=== PATIENT | female | born 1960 | race Caucasian/White ===

== ENCOUNTER → 2021-11-10 11:41 | Outpatient (BNVA) | payer BC, SELFPAY | PROVIDERS: PCP Nurse Practitioner Family; Visit Provider Nurse Practitioner Family | DX: R10.9 Unspecified abdominal pain (principal) | CPT/HCPCS: 80053; 82150; 83690 ==

== ENCOUNTER 2021-11-11 16:47 | Outpatient (CLI) | payer BC, SELFPAY ==
--- NOTE | 2021-11-11 16:54 | XR_ITS ---
WS: [id number] XR KUB [id number] REASON FOR EXAM: ABD pain FINDINGS: No free air or retroperitoneal air. Unremarkable bowel gas pattern. Probable small intrarenal calculi bilaterally. Increased density overlying the mid and lower pelvis. No other significant pelvic abnormality. No bony abnormality. XR/XR KUB [id number] IMPRESSION: Increased density overlying the pelvis which could simply represent distended u rinary bladder. However if further evaluation is clinically warranted transabdo janine ultrasound of the pelvis would be appropriate.
== END 2021-11-11 16:48 | disposition home or self-care (01) ==
LOC: RAD 16:52
PROVIDERS: PCP Family Medicine; Visit Provider Family Medicine
DX: R10.9 Unspecified abdominal pain (principal)
CPT/HCPCS: 74018

== ENCOUNTER 2021-11-23 13:30 | Outpatient (CLI) | payer BC, SELFPAY ==
[2021-11-23 14:02] VITALS: BP 117/65; PULSE 51; RESP 17; TEMP 36.1; O2SAT 96; BMI 39.3
[2021-11-23 15:36] VITALS: BP 121/67; PULSE 74; RESP 18; TEMP 36.1; O2SAT 95
[2021-11-23 15:54] VITALS: BP 128/75; PULSE 67; RESP 18; TEMP 36.3; O2SAT 96
[2021-11-23 15:58] VITALS: BP 128/75; PULSE 67; RESP 18; TEMP 36.6; O2SAT 97
== END 2021-11-23 13:31 | disposition home or self-care (01) ==
LOC: OPS 13:31
PROVIDERS: PCP Family Medicine; Visit Provider Nurse Practitioner Family
DX: U07.1 COVID-19 (principal)
CPT/HCPCS: 96365

== ENCOUNTER 2021-12-09 13:23 | Outpatient (CLI) | payer BC, SELFPAY ==
--- NOTE | 2021-12-09 14:30 | CT_ITS ---
WS: [id number] CT ABDOMEN PELVIS TECHNIQUE: Noncontrast CT of the abdomen and contrast-enhanced CT of the abdomen and pelvis with pedro nal and sagittal reformatted images. CLINICAL INFORMATION: abnormal US, ABD pain, complex para pelvic cyst COMPARISON: None. DLP: 4119.[address] scans at [facility] use at least one of these dose optimization techniques: automated e xposure control; mA and/or kV adjustment per patient size (includes targeted exams where dose is matc hed to clinical indication); or iterative reconstruction. FINDINGS: Normal bilateral renal parenchymal enhancement. No hydronephrosis. Simple appearing left renal cysts. Largest cyst in the lower pole with a small amount of calcification measuring 2.1 CM. No suspicious left renal lesions. Right kidney is normal in appearance. Normal enhancement. Enlargement of the right hepatic lobe with hepatomegaly. Liver measures approximately 18.6 cm craniocaudal. Normal portal vein and splenic vein. Mild fatty atrophy of the pancreas. Normal spleen. Normal GE junction. Adrenal glands are normal. No rmal caliber abdominal aorta. Aortic calcification. Tiny fat-containing umbilical hernia. Tiny amount of micronodular infiltrate in the left lower lobe likely inflammatory. Lung bases are otherwise well aerated. Diffuse thickening o f the sigmoid colon with surrounding inflammatory stranding and edema compatible with acute diverticu litis. Moderate amount of free fluid in the pelvis and extending along the left adnexa. No drainable abscess or fluid collection. Lobulated uterus with endometrial thickening abnormal in a patient this age measuring approximately 2 .2 cm. Cervix also appears thickened. Recommend further evaluation with pelvic ultrasound. Neoplasm i s not excluded. Colon is otherwise normal in appearance. No evidence of small or large bowel obstruction. Disc space narrowing L5-S1 with vacuum disc phenomenon. CT/CT abdomen pelvis wo/w [id number] IMPRESSION: 1. Diffuse thickening of the sigmoid colon and with surrounding induration and inflammatory stranding compatible with acute diverticulitis. Moderate amount o f free fluid in the pelvis and extending along the left adnexa. 2. No drainable abscess or fluid collection. 3. Lobulated thickening of the uterus extending into the cervix abnormal for p atient this age. Suspected endometrial thickening measures 2.2 cm. Recommend fu rther evaluation with ultrasound. Neoplasm is not excluded. 4. Incidental simple left renal cysts largest measuring 2.2 CM. No suspicious left renal lesions. 5. No hydronephrosis in either kidney. 6. Hepatomegaly with enlargement of the right hepatic lobe measuring 18.6 cm c raniocaudal. Liver is otherwise normal in appearance. 7. Tiny amount of inflammatory infiltrate in the left lower lobe. 8. No other significant findings. Notified Anyi Christianson NP at 12/09/2021 4:29 PM.
[2021-12-09] MEDS: iohexol 300 mg/mL 50 mL Btl IV (15:02)
[2021-12-09] MEDS: iohexol 300 mg/mL 100 mL Btl IV (15:02)
== END 2021-12-09 13:24 | disposition home or self-care (01) ==
LOC: RAD 13:25
PROVIDERS: PCP Family Medicine; Visit Provider Nurse Practitioner Family
DX: R93.5 Abnormal findings on diagnostic imaging of other abdominal regions, including retroperitoneum (principal); R10.9 Unspecified abdominal pain; R11.0 Nausea; R16.0 Hepatomegaly, not elsewhere classified; N28.1 Cyst of kidney, acquired
CPT/HCPCS: 74178

== ENCOUNTER → 2021-12-10 00:01 | Outpatient (BNVA) | payer BC, SELFPAY | PROVIDERS: PCP Family Medicine; Visit Provider Nurse Practitioner Family | DX: N85.00 Endometrial hyperplasia, unspecified (principal); R93.5 Abnormal findings on diagnostic imaging of other abdominal regions, including retroperitoneum; R16.0 Hepatomegaly, not elsewhere classified; K57.92 Diverticulitis of intestine, part unspecified, without perforation or abscess without bleeding; J45.40 Moderate persistent asthma, uncomplicated; R10.9 Unspecified abdominal pain; R18.8 Other ascites | CPT/HCPCS: 80053; 86705; 86706; 86709; 86803; 87340 ==

== ENCOUNTER → 2022-01-03 11:09 | Outpatient (BNVA) | payer BC, SELFPAY | PROVIDERS: PCP Family Medicine; Visit Provider Surgery | DX: Z20.822 Contact with and (suspected) exposure to COVID-19 (principal) | CPT/HCPCS: 87635 ==

== ENCOUNTER 2022-01-07 06:53 | Day surgery (SDC) | payer BC, SELFPAY ==
[2022-01-05 12:24] VITALS: BMI 39.4
--- NOTE | 2022-01-07 07:30 | ANES.PREANE2 ---
Pre-Anesthetic Assessment Height/Weight: Height 1.57 m Weight 97.976 kg Preop Diagnosis: diagnostic Operation Date: 01/07/22 08:00 Proposed Procedures p Colonoscopy 26099 K59.00(Not Applicable) - Alcides Bruner MD Familial anesthetic complications: None Was Beta Harsh taken within 24 hours: N/A Was Clonidine taken within 24 hours: N/A Social No alcohol and No tobacco Exam alert, oriented x 3, clear to auscultation bilaterally and regular rate & rhythm Airway Submandibular: within normal limits Cervical ROM: within normal limits Mallampati: Class II Dentition: full Pulmonary Asthma GI Gastroesophageal Reflux Disease Diverticular dz Metabolic Morbid Obesity Anesthetic Plan ASA status: 2 Anesthesia: MAC Medications/Allergies Home Medications Medication Instructions Recorded Confirmed Last Taken Type albuterol sulfate 90 mcg/actuation 2 puff INHALATION Q6H PRN #8.5 g 12/10/21 01/05/22 Unknown Rx aerosol inhaler (Proventil HFA) fluticasone propionate 50 1 spray INTRANASAL BID #16 g 12/10/21 01/05/22 Unknown Rx mcg/actuation nasal spray,suspension (Flonase Allergy Relief) montelukast 10 mg tablet 10 mg PO DAILY 90 Days #90 tab 12/10/21 01/05/22 Unknown Rx coenzyme Q10 30 mg capsule (CoQ-10) 30 mg PO DAILY 01/05/22 01/05/22 Unknown History cyclosporine 0.05 % eye drops in a 1 drp OPHTHALMIC (EYE) Q12H 01/05/22 01/05/22 Unknown History dropperette (Restasis) guaifenesin 600 mg tablet, 600 mg PO BID 01/05/22 01/05/22 Unknown History extended release 12 hr (Mucinex) hydroxyzine HCl 25 mg tablet 25 mg PO DAILY 01/05/22 01/05/22 Unknown History omeprazole 20 mg tablet,delayed 20 mg PO DAILY 01/05/22 01/05/22 Unknown History release vitamin 1 tab PO DAILY 01/05/22 01/05/22 Unknown History no.76-iron,carbonyl 29 mg iron-folic acid 1 mg tablet (Thrivite Rx) Allergies Allergy/AdvReac Type Severity Reaction Status Date / Time erythromycin base Allergy ADR-Nausea Verified 12/22/21 10:58 morphine Allergy ADR-Nausea Verified 12/22/21 10:58 [facility] Anesthesia Medical History COVID-19 Pseudotumor cerebri Seasonal allergies Surgical History History of cholecystectomy History of fusion of cervical spine Family History Father Liver failure Other Hypertension Social History Smoking and tobacco status: never smoked Data Anesthesia Cardiac Studies: No Data to Display
[2022-01-07 07:41] VITALS: BP 176/101; PULSE 90; RESP 20; TEMP 36.6; O2SAT 100
[2022-01-07] MEDS: sodium chloride 0.9% 1,000 ML 30 ML IV (07:56)
--- NOTE | 2022-01-07 08:12 | W.PM.OPSFHP ---
Same Day Surgery H&P Indication for Procedure/HPI DATE OF PROCEDURE: January 07, 2022 CHIEF COMPLAINT/INDICATIONFOR SURGICAL PROCEDURE: screening PREOP DIAGNOSIS: diagnostic PLANNED PROCEDURE: Operation Date: 01/07/22 08:00 Proposed Procedures p Colonoscopy 12576 K59.00(Not Applicable) - Alcides Bruner MD Medications/Allergies* Home Medications Medication Instructions Recorded Confirmed Type coenzyme Q10 30 mg capsule (CoQ-10) 30 mg PO DAILY 01/05/22 01/05/22 History cyclosporine 0.05 % eye drops in a 1 drp OPHTHALMIC (EYE) Q12H 01/05/22 01/05/22 History dropperette (Restasis) guaifenesin 600 mg tablet, 600 mg PO BID 01/05/22 01/05/22 History extended release 12 hr (Mucinex) hydroxyzine HCl 25 mg tablet 25 mg PO DAILY 01/05/22 01/05/22 History omeprazole 20 mg tablet,delayed 20 mg PO DAILY 01/05/22 01/05/22 History release vitamin 1 tab PO DAILY 01/05/22 01/05/22 History no.76-iron,carbonyl 29 mg iron-folic acid 1 mg tablet (Thrivite Rx) Allergies/Adverse Reactions Allergy/AdvReac Type Severity Reaction Status Date / Time erythromycin base Allergy ADR-Nausea Verified 12/22/21 10:58 morphine Allergy ADR-Nausea Verified 12/22/21 10:58 Current Medications: Generic Name Dose Route Start Last Admin Trade Name Freq PRN Reason Stop Dose Admin Sodium Chloride 1,000 mls @ 30 mls/hr 01/07/22 07:15 01/07/22 07:56 Sodium Chloride 0.9% IV 01/08/22 07:14 30 mls/hr .Q24H BOB Administration Pertinent History/Comorbid Conditions* Medical History (Updated 12/22/21 @ 11:01 by Anyi Christianson NP) COVID-19 Pseudotumor cerebri Seasonal allergies Surgical History (Updated 11/29/21 @ 12:00 by Alcides Burner MD) History of cholecystectomy History of fusion of cervical spine Family History (Updated 04/23/21 @ 13:42 by Simi Martin LPN) Liver failure Father Hypertension Social History Smoking and tobacco status: never smoked Pertinent Exam Findings alert, oriented x 3 and regular rate & rhythm Recommendations Surgery/Procedure today Coding Level of Care Code 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
[2022-01-07 08:51] VITALS: BP 125/79; PULSE 90; RESP 16; TEMP 36.6; O2SAT 95
[2022-01-07 09:12] VITALS: BP 165/86; PULSE 69; RESP 18; O2SAT 98
--- NOTE | 2022-01-07 12:32 | ANE.PACU2 ---
Inpatient post-anesthesia follow up: Airway intact: Yes Vital signs: Temperature 98 F Pulse Rate 69 Respiratory Rate 18 Blood Pressure 165/86 Pulse Oximetry 98 Oxygen Delivery Me thod Room Air Oxygen Flow Rate Fraction of Inspir ed Oxygen Hydration adequate: Yes Nausea and vomiting: No Pain level: 1 Mental status: Baseline
== END 2022-01-07 09:28 | disposition home or self-care (01) ==
PROVIDERS: PCP Family Medicine; Visit Provider Surgery
PROC: 0DJD8ZZ Inspection of Lower Intestinal Tract, Via Natural or Artificial Opening Endoscopic (ICD-10-PCS; CPT 45378; principal; 2022-01-07 08:00)
DX: K59.00 Constipation, unspecified (principal); K57.30 Diverticulosis of large intestine without perforation or abscess without bleeding; Z86.16 Personal history of COVID-19; K21.9 Gastro-esophageal reflux disease without esophagitis; J45.909 Unspecified asthma, uncomplicated; E66.01 Morbid (severe) obesity due to excess calories; Z68.39 Body mass index [BMI] 39.0-39.9, adult
CPT/HCPCS: 45378; J2704; J7030

== ENCOUNTER → 2022-01-10 09:55 | Outpatient (BNVA) | payer BC, SELFPAY | PROVIDERS: PCP Family Medicine; Visit Provider Obstetrics & Gynecology | DX: Z12.4 Encounter for screening for malignant neoplasm of cervix (principal) | CPT/HCPCS: 87624 ==

== ENCOUNTER → 2022-01-12 09:20 | Outpatient (BNVA) | payer BC, SELFPAY | PROVIDERS: PCP Family Medicine; Visit Provider Obstetrics & Gynecology | DX: Z20.822 Contact with and (suspected) exposure to COVID-19 (principal); R93.89 Abnormal findings on diagnostic imaging of other specified body structures | CPT/HCPCS: 87635 ==

== ENCOUNTER 2022-01-18 11:43 | Day surgery (SDC) | payer BC, SELFPAY ==
[2022-01-18] VITALS (9 sets, daily range): BP systolic 141–168; BP diastolic 68–112; PULSE 76–94; RESP 17–18; TEMP 36.3–37.4; O2SAT 94–99
[2022-01-18] MEDS: ketorolac 30 mg/mL INJ IVP (12:35)
[2022-01-18] MEDS: sodium chloride 0.9% 1,000 ML 30 ML IV (12:35)
[2022-01-18] MEDS: scopolamine 1.5 Patch 1 PATCH TRANSDERMA (12:38)
--- NOTE | 2022-01-18 12:41 | ANES.PREANE2 ---
Pre-Anesthetic Assessment Height/Weight: Height 1.57 m Weight 97.976 kg Temp Pulse Resp BP Pulse Ox 99.4 F 94 18 168/112 96 01/18/22 12:03 01/18/22 12:03 01/18/22 12:03 01/18/22 12:03 01/18/22 12:03 Preop Diagnosis: thickened endometrium Operation Date: 01/18/22 13:25 Proposed Procedures p Hysteroscopy w/ Myosure(Not Applicable) - Laura Contreras MD Familial anesthetic complications: PONV Last intake: Intake Last Liquid Date 01/17/22 Last Liquid Time 23:00 Last Solid Date 01/17/22 Last Solid Time 23:00 Social No alcohol and No tobacco Exam alert, oriented x 3, clear to auscultation bilaterally and regular rate & rhythm Airway Submandibular: within normal limits Cervical ROM: Other (Hx of cervical fusion limited in flexion) Mallampati: Class II Dentition: chipped Pulmonary Asthma Hx of COVID 19 CV/HEM Hypertension METS > 4 None reported Hepatic None reported GI Gastroesophageal Reflux Disease Diverticulosis Metabolic None reported Musc/skel None reported Neuropsych Hx of pseudotumor cerebri Anesthetic Plan ASA status: 2 (Obese 61 year old female with hx of GERD, cervical fusion, PONV, and asthma) Anesthesia: Anesthesia Evaluation and General Other: Prefers general We discussed risk and benefits of general anesthesia including PONV, sore throat (sometimes severe), corneal abrasion, positioning and peripheral nerve injuries, life threatening allergic reaction, post operative ICU admission requiring prolonged intubation, stroke, heart attack, , and rare incidences of recall. Patient consents to proceed with general anesthesia. Hx of PONV. Plan multimodal approach with diphehydramine and scopolamine pre op, propofol infusion intra op in addition to steroid and ondansetron Risk of > 500 ml blood loss (7ml/kg in children): No Medications/Allergies Home Medications Medication Instructions Recorded Confirmed Last Taken Type albuterol sulfate 90 mcg/actuation 2 puff INHALATION Q6H PRN #8.5 g 12/10/21 01/18/22 01/18/22 11:00 Rx aerosol inhaler (Proventil HFA) montelukast 10 mg tablet 10 mg PO DAILY 90 Days #90 tab 12/10/21 01/18/22 01/17/22 Rx cyclosporine 0.05 % eye drops in a 1 drp OPHTHALMIC (EYE) Q12H 01/05/22 01/18/22 01/18/22 10:00 History dropperette (Restasis) guaifenesin 600 mg tablet, 600 mg PO BID 01/05/22 01/18/22 01/17/22 History extended release 12 hr (Mucinex) omeprazole 20 mg tablet,delayed 20 mg PO DAILY 01/05/22 01/18/22 01/17/22 History release vitamin 1 tab PO DAILY 01/05/22 01/18/22 01/17/22 History no.76-iron,carbonyl 29 mg iron-folic acid 1 mg tablet (Thrivite Rx) cetirizine 10 mg capsule (Zyrtec) 10 mg PO DAILY 01/10/22 01/18/22 01/17/22 History coconut oil 1,000 mg capsule 2,000 mg PO DAILY 01/10/22 01/17/22 Unknown History coenzyme Q10 100 mg capsule (Co 100 mg PO DAILY 01/10/22 01/18/22 01/17/22 History Q-10) d-mannose 500 mg capsule (AZO 1,000 mg PO DAILY 01/10/22 01/18/22 01/17/22 History D-Mannose) fluticasone propionate 50 1 spray INTRANASAL DAILY PRN g 01/10/22 01/18/22 01/18/22 10:00 History mcg/actuation nasal spray,suspension (Flonase Allergy Relief) milk thistle 175 mg tablet 175 mg PO BID 01/10/22 01/18/22 01/17/22 History misoprostol 200 mcg tablet 600 mcg PO Q6H #12 tab 01/10/22 01/18/22 01/17/22 Rx (Cytotec) tumeric 100 mg-armando 150 mg-olive 100 cap PO DAILY 01/10/22 01/18/22 01/16/22 History 50 mg-oreg 150 mg-caprylate capsule vit 250 cap PO DAILY cap 01/10/22 01/18/22 01/17/22 History C,E,zinc,Si-gqrjv-4-lutein-zeaxanthin 250 mg-2.5 mg-0.5 mg capsule glucosamine sulfate 500 mg tablet 500 mg PO DAILY 01/17/22 01/18/22 01/17/22 History (Glucosamine) hydroxyzine HCl 25 mg tablet 25 mg PO DAILY 01/17/22 01/18/22 01/17/22 History vitamins A,C,N-dzsp-ssrojl 14,320 1 cap PO BID 01/17/22 01/18/22 01/17/22 History unit-226 mg-200 unit capsule (PreserVision AREDS) Allergies Allergy/AdvReac Type Severity Reaction Status Date / Time erythromycin base Allergy ADR-Nausea Verified 01/18/22 11:59 morphine Allergy ADR-Nausea Verified 01/18/22 11:59 diazepam [From Valium] AdvReac skin crawl Verified 01/18/22 11:59 Current Medications Generic Name Dose Route Start Last Admin Trade Name Freq PRN Reason Stop Dose Admin Sodium Chloride 1,000 mls @ 30 mls/hr 01/18/22 12:00 01/18/22 12:35 Sodium Chloride 0.9% IV 01/19/22 11:59 30 mls/hr .Q24H BOB Administration PFSH Anesthesia Medical History Asthma COVID-19 Diverticulosis Eczema Hypertension Pseudotumor cerebri Seasonal allergies Surgical History History of cholecystectomy History of fusion of cervical spine Status post colonoscopy (01/07/22) diverticulosis -repeat in 10years Family History Father Liver failure Stroke Cancer skin Hypertension Mother CHF (congestive heart failure) Hypertension Grandfather Cancer Maternal--lung Denies family history of Diabetes Clotting disorder Chronic kidney disease (CKD) Bleeding disorder Thyroid disease Social History Smoking and tobacco status: never smoked Data Anesthesia Cardiac Studies: No Data to Display
[2022-01-18] MEDS: diphenhydrAMINE 50 mg/mL SDV 1mL 25 MG IVP (12:42)
--- NOTE | 2022-01-18 15:14 | W.PM.OPSUD ---
Surgery/Procedure H&P Update DATE OF PROCEDURE: January 18, 2022 DATE H&P PERFORMED: 01/10/22 H&P UPDATE INFORMATION: I have reviewed H&P completed within last 30 days, I have examined patient prior to procedure and No changes to prior documentation CHANGES TO PREVIOUS DOCUMENTATION: She reports that she took all four doses of cytotec. PREOP DIAGNOSIS: thickened endometrium PRIMARY INDICATION FOR PROCEDURE: Thickened endometrium, stenotic cervical os. PLANNED PROCEDURE: Operation Date: 01/18/22 13:25 Proposed Procedures p Hysteroscopy w/ Myosure(Not Applicable) - Laura Contreras MD Related Problem List Diagnoses (1) Thickened endometrium:
--- NOTE | 2022-01-18 16:02 | P.OP_ITS ---
Operative Report Date of procedure: January 18, 2022 Pre-op diagnosis: Preop Diagnosis thickened endometrium Post-op diagnosis: same Post-op findings: extremely thickened endometrium Procedure done: hysteroscopy, dilation and curettage with myosure Specimens removed/disposition: endometrial curettings to pathology Surgeon: Laura Contreras Anesthesia: MAC Estimated blood loss (mL): 5 IV fluids (mL): 400 Findings: hysteroscopy deficit: 65ml Condition: stable Disposition: PACU Procedure: The patient was taken to the operating room where monitored anesthesia was adm inistered and to be adequate. She was prepped and draped in the normal sterile fashion in the dorsal lithotomy position in [facility]. A weighted speculum was placed into the vagina and the anterior lip of the cervix grasped with a single-tooth tenaculum. The uterus was sounded to eight cm. The cervix was dilated to 16 Ukrainian Ukrainian. The hysteroscope was advanced into the endometrial cavity. There was excessive tissue visualized. The MyoSure device was activated and the tissue was removed. Pictures were taken pre and post procedure. All instruments were removed. The patient tolerated the procedure well. Sponge lap and needle counts were correct x3. She was taken to the recovery room in stable condition.
--- NOTE | 2022-01-18 16:04 | PM.DCS ---
Discharge Providers Date of Admission: 01/18/22 Date of Discharge: January 18, 2022 Attending Provider at Admission: Laura Contreras MD Attending Provider at Discharge: Laura Contreras MD Primary Care Provider: Leighann Silva MD Diagnoses at Discharge Discharge Diagnosis (1) Thickened endometrium: Status: Acute Reason for Visit Reason for Visit: thickened endometrium/r93.89 Hospital Course Hospital Course The patient was admitted for surgery. she did well postoperatively and was ready for discharge Discharge Data Studies Completed and Pending Pending at discharge Category Date Time Status ES surgery / GI images Routine Exams 01/18/22 15:51 Taken Vitals Last Vital Signs Temp 99.4 F 01/18/22 12:03 Pulse 94 01/18/22 12:03 Resp 18 01/18/22 12:03 BP 144/97 01/18/22 12:52 Pulse Ox 96 01/18/22 12:03 Discharge Plan Discharge Patient Disposition: Home Condition: Stable Prescriptions: Continued albuterol sulfate [Proventil HFA] 90 mcg/actuation HFA aerosol inhaler 2 puff inhalation Q6H PRN (Reason: ASTHMA) Qty: 8.5 6RF montelukast 10 mg tablet 10 mg PO DAILY 90 Days Qty: 90 2RF coenzyme Q10 [Co Q-10] 100 mg capsule 100 mg PO DAILY 0RF milk thistle 175 mg tablet 175 mg PO BID 0RF Rx Instructions: give with meal/snack fluticasone propionate [Flonase Allergy Relief] 50 mcg/actuation spray,suspension 1 spray intranasal DAILY PRN (Reason: Allergic Symptoms) 0RF Rx Instructions: administer into each nostril Zyrtec 10 mg capsule 10 mg PO DAILY 0RF vit C,E,Zn,Mg-ddyhw8-pjo-zeax 250-2.5-0.5 mg capsule 250 cap PO DAILY 0RF coconut oil 1,000 mg capsule 2,000 mg PO DAILY 0RF AZO D-Mannose 500 mg capsule 1,000 mg PO DAILY 0RF uzbvsft-chmc-fejix-oreg-capryl 100 mg-150 mg- 50 mg-150 mg capsule 100 cap PO DAILY 0RF misoprostol [Cytotec] 200 mcg tablet 600 mcg PO Q6H Qty: 12 0RF Rx Instructions: take first dose at noon on 01/17, then every 6 hours. Final dose at 6:00 am on 01/18 glucosamine sulfate [Glucosamine] 500 mg Tablet 500 mg PO DAILY 0RF hydroxyzine HCl 25 mg tablet 25 mg PO DAILY 0RF PreserVision AREDS 14,320-226-200 fmmn-xg-itbi Capsule 1 cap PO BID 0RF Restasis 0.05 % Dropperette 1 drp OPHTHALMIC (EYE) Q12H 0RF guaifenesin [Mucinex] 600 mg Tablet Extended Release 12hr 600 mg PO BID 0RF Thrivite Rx 29 mg iron- 1 mg Tablet 1 tab PO DAILY 0RF omeprazole 20 mg Tablet,Delayed Release (Dr/Ec) 20 mg PO DAILY 0RF Discharge Orders: Discharge Order (Routine); Ordered 01/18/22 Ordered By: Laura Contreras Referrals: Laura Contreras MD [Physician] - (Call Doctor's office tommorow and confirm post op appointment date and time.) Patient Instructions: OB Hysteroscopy - [facility], Post Anesthesia Care Discharge Attestations Time Spent in Discharge Care*: less than 30 min Quality Metrics Clinical Quality Measures [ No reported AMI, CVA or VTE this stay] Coding Level of Care Code Acute Chg FW DC note Diagnoses Thickened endometrium R93.89
--- NOTE | 2022-01-18 17:56 | ANE.PACU2 ---
Inpatient post-anesthesia follow up: Airway intact: Yes Vital signs: Temperature 97.8 F Pulse Rate 76 Respiratory Rate 18 Blood Pressure 156/89 Pulse Oximetry 96 Oxygen Delivery Me thod Room Air Oxygen Flow Rate 6 Fraction of Inspir ed Oxygen Hydration adequate: Yes Nausea and vomiting: No Pain level: 1 Mental status: Baseline
== END 2022-01-18 17:19 | disposition home or self-care (01) ==
PROVIDERS: PCP Family Medicine; Visit Provider Obstetrics & Gynecology
PROC: 0UDB8ZZ Extraction of Endometrium, Via Natural or Artificial Opening Endoscopic (ICD-10-PCS; CPT 58558; principal; 2022-01-18 13:15)
DX: R93.89 Abnormal findings on diagnostic imaging of other specified body structures (principal); J45.909 Unspecified asthma, uncomplicated; Z86.16 Personal history of COVID-19; I10 Essential (primary) hypertension; Z98.1 Arthrodesis status; K21.9 Gastro-esophageal reflux disease without esophagitis; Z82.49 Family history of ischemic heart disease and other diseases of the circulatory system
CPT/HCPCS: 58120; 88305; J0690; J1100; J1200; J1885; J2405; J2704; J3010; J3490; J7030

== ENCOUNTER 2022-03-27 11:58 | Inpatient (IN) | payer BC, SELFPAY ==
[2022-03-27] VITALS (7 sets, daily range): BP systolic 132–149; BP diastolic 80–87; PULSE 72–97; RESP 18; TEMP 36.2–36.7; O2SAT 97–99; BMI 38.4
--- NOTE | 2022-03-27 12:59 | W.ED.ABDPA2 ---
HPI - Abdominal Pain General: Chief Complaint: Abdominal Pain Stated Complaint: divierticulitis flair Time Seen by Provider: 03/27/22 12:59 History of Present Illness: Ms. Jacome is a 61-year-old lady with history of diverticulosis who presents to the emergency department due to abdominal pain and concern over diverticulitis. She reports symptom onset was approximately 6 days ago initially noting left lower quadrant abdominal pain with radiation towards the upper quadrant. This has been gas-like and cramping in nature and moderate to severe in intensity. Course has been intermittent. Subsequently she has had nausea, vomiting over the past 3 days and abnormal stools. She did have a somewhat normal bowel movement today and is still passing gas. She has had subjective chills without other focal infectious symptoms. No other specific changes in health, exacerbating, or alleviating factors identified. Onset (ago): day(s) Pain Consistency: constant Location: LLQ Severity: moderate Exacerbating factors: eating and movement Associated Symptoms: Reports GI cramping, nausea and vomiting Review of Systems General: Reports: 10 or more systems reviewed and unremarkable except in HPI and below GI: Reports: nausea, vomiting and GI cramping [facility] PFSH: Medical History Asthma COVID-19 Diverticulosis Eczema Hypertension Pseudotumor cerebri Seasonal allergies Surgical History History of cholecystectomy History of fusion of cervical spine Status post colonoscopy (01/07/22) diverticulosis -repeat in 10years Family History Father Liver failure Stroke Cancer skin Hypertension Mother CHF (congestive heart failure) Hypertension Grandfather Cancer Maternal--lung Denies family history of Diabetes Clotting disorder Chronic kidney disease (CKD) Bleeding disorder Thyroid disease Social History Smoking and tobacco status: never smoked Physical Exam Const: COMMON NORMALS: alert GENERAL APPEARANCE: cooperative, well developed and ill appearing (Somewhat) HENMT: COMMON NORMALS: normocephalic and atraumatic HEAD & SCALP: normocephalic and atraumatic Eye: COMMON NORMALS: conjunctivae normal CONJUNCTIVA: Yes conjunctivae normal SCLERA: sclerae normal Neck/C-Spine: COMMON NORMALS: supple GENERAL: Yes trachea midline Resp: COMMON NORMALS: normal respiratory effort EFFORT & INSPECTION: Yes able to speak in complete sentences Cardio: COMMON NORMALS: regular rate and regular rhythm RATE: regular rate RHYTHM: regular rhythm GI: COMMON NORMALS: Soft to palpation PALPATION: Yes Soft to palpation, Yes Tenderness to palpation present (GI), Yes Guarding due to palpation present (GI) and No Rigid due to palpation Extremity: GENERAL: Yes normal exam except as noted and No edema Neuro: COMMON NORMALS: moves all extremities SENSORIUM/ORIENTATION: Yes alert and No Orientation impaired Psych: COMMON NORMALS: mental status grossly normal and Normal thought process present THOUGHT PROCESS: Normal thought process present Course ED course: - Patient was seen and evaluated by me at bedside - Patient placed on cardiac monitors, IV access obtained - Initial evaluation notable for exam as above - Labs and xrays personally interpreted by me -Analgesia, antiemetic, fluids given. - Labs notable for leukocytosis, metabolic panel with evidence of dehydration as well as hypokalemia, replenishment ordered. Urinalysis not concerning for urinary tract infection. - Imaging notable for likely diverticulitis versus colitis. There are cystic structures in the abdomen certainly no definitive abscess requiring drainage. - Upon serial reexamination after treatment the patient was mildly improved - Based on patient history, evaluation, and testing as interpreted the most likely cause of the patient's condition is diverticulitis/colitis. Given severity of symptoms including inability to tolerate oral intake and evidence of metabolic distress on laboratory studies she requires further inpatient observation to ensure improvement in symptoms. Antibiotics given. - The results of ED evaluation were discussed with the patient including plan for admission due to requirement for level of care not available if discharged to prevent significant worsening/deterioration. - Admitting service was contacted and Dr Perrin with the hospitalist service agreed to admit the patient - Patient was admitted without further deterioration or significant events. Note: Click bubbles or prepopulated soto in note writing are used for assistance with data collection and billing and are inherently more limited than narrative and other text portions of this note. Please use narrative for additional clinical history and defer to narrative/free test for any case of contradictory information. If information appears in only free text or click bubble it should be considered present or absent as reported. Please contact note technical report writer for clarifications of clinical information or contradictory information. MDM is a brief summary, contradictory or erroneous seeming information should be clarified and full note should be reviewed. Vital Signs: Vital signs: Vital Signs Temperature 97.9 F 03/31/22 17:42 Pulse Rate 71 03/31/22 17:42 Respiratory Rate 16 03/31/22 17:42 Blood Pressure 134/83 03/31/22 17:42 Pulse Oximetry 97 03/31/22 17:42 MDM - Abdominal Pain Medical Decision Making 61-year-old lady presenting with 6 days of symptoms including abdominal pain and nausea and vomiting. Does have a history of diverticulitis. Found to have diverticulitis and metabolic derangement related to dehydration. Treated with antibiotics and admitted for further management. Medical Records I reviewed the patient's medical records. Lab Data I reviewed the patient's lab results. : 03/31/22 04:57 03/31/22 04:57 Labs/Radiology: Radiology Impressions Pelvis Ultrasound 03/28/22 11:05 IMPRESSION: Loculated pelvic fluid as seen on CT. Infection is a possibility. The ovaries are not visible by transabdominal ultrasound. ADDENDUM: 03/28/22 1834 THIS REPORT CONTAINS FINDINGS THAT MAY BE CRITICAL TO PATIENT CARE. The findings were verbally communicated via telephone conference with Magy Perrin at 6:32 PM [facility] on 03/28/2022. The findings were acknowledged and understood. Abdomen/Pelvis CT 03/30/22 15:00 IMPRESSION: 1. Improved sigmoid diverticulitis and colitis. 2. Stable 3.7 cm oval cystic lesion in the anterior left pelvis. This has no peripheral enhancement and most likely represents a seroma or loculated ascites. An abscess is considered less likely. 3. Stable chronic nonenhancing fluid collection in the posterior left pelvis, most likely loculated ascites. COMMENTS: Consistent with the [employer]'s Incidental Findings Committee white paper (J Am Marlen Radiol 2018): Any incidental renal lesion less than 1 cm or classified as too small to characterize, or any incidental cystic renal lesion characterized as simple-appearing, is likely benign. No follow-up imaging is recommended for these lesions per consensus recommendations based on imaging criteria. Laboratory Results WBC 15.3 10^3/uL (4.0-10.0) H 03/27/22 13:27 RBC 5.12 10^6/uL (4.1-5.3) 03/27/22 13:27 Hgb 14.8 g/dL (11.5-15.3) 03/27/22 13:27 Hct 43.7 % (37.0-47.0) 03/27/22 13:27 MCV 85.4 fl (81-99) 03/27/22 13:27 MCH 28.9 pg (28.0-34.0) 03/27/22 13:27 MCHC 33.9 g/dL (30.0-36.0) 03/27/22 13:27 RDW 11.9 % (12.1-15.1) L 03/27/22 13:27 Plt Count 329 10^3/cmm (130-400) 03/27/22 13:27 MPV 10.2 fL (7.4-10.4) 03/27/22 13:27 Neut % (Auto) 73.6 % 03/27/22 13:27 Lymph % (Auto) 20.9 % 03/27/22 13:27 Vernon % (Auto) 4.8 % 03/27/22 13:27 Eos % (Auto) 0.1 % 03/27/22 13:27 Baso % (Auto) 0.3 % 03/27/22 13:27 Neut # (Auto) 11.30 10^3/uL (1.8-7.7) H 03/27/22 13:27 Lymph # (Auto) 3.2 10^3/uL (0.8-4.8) 03/27/22 13:27 Vernon # (Auto) 0.7 10^3/uL (0.2-0.9) 03/27/22 13:27 Eos # (Auto) 0.0 10^3/uL (0.0-0.8) 03/27/22 13:27 Baso # (Auto) 0.0 10^3/uL (0.0-0.1) 03/27/22 13: Nucleated RBC % (auto) 0 % 03/27/22 13: Nucleated RBCs # 0.0 /100WBC 03/27/22 13:27 Sodium 141 mmol/L (136-145) 03/27/22 13:27 Potassium 2.9 mmol/L (3.5-5.1) L 03/27/22 13:27 Chloride 110 mmol/L (98-107) H 03/27/22 13:27 Carbon Dioxide 19 mmol/L (22-29) L 03/27/22 13:27 Anion Gap 14.9 (5-19) 03/27/22 13:27 BUN 7 mg/dL (8-23) L 03/27/22 13:27 Creatinine 0.5 mg/dL (0.5-0.9) 03/27/22 13:27 GFR Calculation 125.9 mL/min (90-130) 03/27/22 13:27 Glucose 96 mg/dL (65-115) 03/27/22 13:27 Calculated Osmolality 290 mOsm/kg (285-295) 03/27/22 13:27 Lactic Acid 1.0 mmol/L (0.5-2.2) 03/27/22 15:05 Calcium 6.5 mg/dL (8.5-10.5) L 03/27/22 13:27 Ionized Calcium Seth 1.1 mmol/L (1.1-1.4) 03/27/22 15:08 Magnesium 1.4 mg/dL (1.7-2.3) L 03/27/22 13:27 Total Bilirubin 0.5 mg/dL (0.15-1.2) 03/27/22 13:27 AST 16 U/L (0-32) 03/27/22 13:27 ALT 14 U/L (0-33) 03/27/22 13:27 Alkaline Phosphatase 100 IU/L (35-105) 03/27/22 13:27 Total Protein 5.5 g/dL (6.6-8.7) L 03/27/22 13:27 Albumin 3.3 g/dL (3.5-5.2) L 03/27/22 13:27 Globulin 2.2 g/dL (1.3-4.6) 03/27/22 13:27 Lipase 12 U/L (13-60) L 03/27/22 13:27 Urine Color Yellow (Yellow) 03/27/22 13:09 Urine Appearance Clear (CLEAR) 03/27/22 13:09 Urine pH 8 (5-7) H 03/27/22 13:09 Ur Specific [place] 1.010 (1.005-1.030) 03/27/22 13:09 Urine Protein Neg (Negative) 03/27/22 13:09 Urine Glucose (UA) Norm (Normal) 03/27/22 13:09 Urine Ketones 2+ (Negative) H 03/27/22 13:09 Urine Blood Neg (Negative) 03/27/22 13:09 Urine Nitrate Negative (Negative) 03/27/22 13:09 Urine Bilirubin Neg (Negative) 03/27/22 13:09 Prot Sulfosalicylic Acd Negative (Negative) 03/27/22 13:09 Urine Urobilinogen Norm mg/dL (Negative) 03/27/22 13:09 Ur Leukocyte Esterase 1+ (Negative) H 03/27/22 13:09 Urine RBC None /hpf (0-2) 03/27/22 13:09 Urine WBC 0-4 /hpf (0-5) H 03/27/22 13:09 Ur Squamous Epith Cells 0-4 /hpf (0-5) H 03/27/22 13:09 Amorphous Sediment Not Reportable 03/27/22 13:09 Urine Bacteria 1+ /hpf (NONE) H 03/27/22 13:09 Discharge Plan Discharge Patient Disposition: Placed in Observation Admit Provider: Magy Perrin Clinical Impression: Diverticulitis, Dehydration, Nausea and vomiting, Leukocytosis, Hypokalemia, Hypomagnesemia Discharge Diet: GI Soft Discharge Activity: Resume usual activity and Increase activity as tolerated Coding Level of Care Code ED Classified Copy Control Clerk for Madai Miller
--- NOTE | 2022-03-27 13:18 | CTR_ITS ---
PROCEDURE INFORMATION: Exam: CT Abdomen And Pelvis With Contrast Exam date and time: 03/27/2022 2:24 PM Age: 61 years old Clinical indication: Abdominal pain; Localized; Left; Prior surgery; Surgery date: 6+ months; Surgery type: Gb; Patient HX: C/O abd pain x 1 week now w n/v/d; Additional info: L sided abdominal pain, HX diverticulitis TECHNIQUE: Imaging protocol: Computed tomography of the abdomen and pelvis with contrast. Radiation optimization: All CT scans at this facility use at least one of these dose optimization techniques: automated exposure control; mA and/or kV adjustment per patient size (includes targeted exams where dose is matched to clinical indication); or iterative reconstruction. Contrast material: OMNI 300; Contrast volume: 95 ml; Contrast route: INTRAVENOUS (IV); COMPARISON: CT abdomen pelvis wo/w [id number] 12/09/2021 3:05 PM RADIATION DOSE METRICS: Total DLP (mGy-cm): 1580.46 FINDINGS: Liver: The liver is enlarged at 186 mm. Gallbladder and bile ducts: Normal. No calcified stones. No ductal dilation. Pancreas: Normal. No ductal dilation. Spleen: Normal. No splenomegaly. Adrenal glands: Normal. No mass. Kidneys and ureters: Stable left renal calcifications and cysts. The right kidney is unremarkable. There is no hydronephrosis. Stomach and bowel: Numerous diverticula with bowel wall thickening inflammatory changes surrounding a moderate segment distal descending and sigmoid colon. The length of the abnormality is slightly long for focal acute diverticulitis and possibly represents a colitis. Appendix: No evidence of appendicitis. Intraperitoneal space: There is a small amount of pelvic fluid. No free air. Vasculature: Unremarkable. No abdominal aortic aneurysm. Lymph nodes: Unremarkable. No enlarged lymph nodes. Urinary bladder: Unremarkable as visualized. Reproductive: The uterus is still present. The pelvic fluid could be gynecological versus sequelae of the suspected colitis. There is a cystic areas seen in the anterior pelvis measuring 30 mm questionably ovary versus an abscess. Best seen on image through . A 2nd cystic area is seen in the high left pelvis measuring 45 x 37 mm. This is similar to the previous examination and likely represents the left ovary. Bones/joints: Unremarkable. No acute fracture. Soft tissues: Fat containing stable periumbilical hernia. CT/CT abdomen pelvis w con* [id number] IMPRESSION: 1. Moderate segment distal sigmoid colon and sigmoid colon bowel wall thickening with inflammatory changes surrounding. Slightly longer in length to be consistent with acute diverticulitis and possibly represents a colitis. 2. Cystic area noted associated with a diverticula and the colon in the pelvis. Questionable ovary versus abscess as the uterus is still present. Second similar area is stable posteriorly on the left. 3. Pelvic fluid. 4. Large fatty liver. 5. Stable left renal cysts and calcifications without hydronephrosis. COMMENTS: Consistent with the [employer]'s Incidental Findings Committee white paper (J Am Marlen Radiol 2018): Any incidental renal lesion less than 1 cm or classified as too small to characterize, or any incidental cystic renal lesion characterized as simple-appearing, is likely benign. No follow-up imaging is recommended for these lesions per consensus recommendations based on imaging criteria.
[2022-03-27 13:27] LABS: Add Urine Microscopic? YES; Bilirubin Urine Neg (Negative); Blood Urine Neg (Negative); Glucose Urine UA Norm (Normal); Ketones Urine 2+ (Negative); Leukocyte Esterase Urine 1+ (Negative); Nitrate Urine Negative (Negative); Protein Urine Neg (Negative); Urine Appearance Clear (CLEAR); Urine Color Yellow (Yellow); Urobilinogen Urine Norm (Negative); pH Urine 8 (5-7)
[2022-03-27 13:28] LABS: Add Urine Culture? No; Bacteria Urine 1+ /hpf; Squamous Epithelial Cell Urine 0-4 /hpf (0-5); WBC Urine 0-4 /hpf (0-5)
[2022-03-27] MEDS: ondansetron 2 mg/ML SDV 2 mL 4 MG IVP ×2 (13:46→22:34)
[2022-03-27] MEDS: fentaNYL 50 mcg/mL INJ 2mL IVP (13:46)
[2022-03-27 13:50] LABS: Basophils % 0.3 %; Eosinophils % 0.1 %; Hematocrit 43.7 % (37.0-47.0); Hemoglobin 14.8 g/dL (11.5-15.3); Lymphocytes # 3.2 10^3/uL (0.8-4.8); Lymphocytes % 20.9 %; Mean Corpuscular HGB Conc 33.9 g/dL (30.0-36.0); Mean Corpuscular Hemoglobin 28.9 pg (28.0-34.0); Mean Corpuscular Volume 85.4 fl (81-99); Mean Platelet Volume 10.2 fL (7.4-10.4); Monocytes # 0.7 10^3/uL (0.2-0.9); Monocytes % 4.8 %; Neutrophils % 73.6 %; Nucleated Red Blood Cells % 0 %; Platelet Count 329 10^3/cmm (130-400); Red Blood Count 5.12 10^6/uL (4.1-5.3); Red Cell Distribution Width 11.9 % (12.1-15.1); White Blood Count 15.3 10^3/uL (4.0-10.0)
[2022-03-27 14:08] LABS: Alanine Aminotransferase 14 U/L (0-33); Albumin Level 3.3 g/dL (3.5-5.2); Alkaline Phosphatase 100 IU/L (35-105); Anion Gap 14.9 (5-19); Aspartate Amino Transferase 16 U/L (0-32); Blood Urea Nitrogen 7 mg/dL (8-23); Calcium 6.5 mg/dL (8.5-10.5); Carbon Dioxide 19 mmol/L (22-29); Chloride 110 mmol/L (98-107); Globulin 2.2 g/dL (1.3-4.6); Glomerular Filtration Rate 125.9 mL/min (90-130); Glucose 96 mg/dL (65-115); Lipase 12 U/L (13-60); Osmolality Calculated 290 mOsm/kg (285-295); Sodium 141 mmol/L (136-145); Total Bilirubin 0.5 mg/dL (0.15-1.2); Total Protein 5.5 g/dL (6.6-8.7)
[2022-03-27 14:16] LABS: Potassium 2.9 mmol/L (3.5-5.1)
[2022-03-27] MEDS: iohexol 300 mg/mL 100 mL Btl IV (14:23)
[2022-03-27 14:47] LABS: Magnesium 1.4 mg/dL (1.7-2.3)
[2022-03-27] MEDS: lidocaine 1% 5 ML in potassium chloride premix 100 ML 25 ML IV ×2 (15:14→20:54)
[2022-03-27 15:23] LABS: Ionized Calcium 1.1 mmol/L (1.1-1.4)
[2022-03-27] MEDS: sodium chloride 0.9% 1,000 ML 999 ML IV (15:26)
[2022-03-27] MEDS: metroNIDAZOLE IV 500 MG/100 ML PREMIX 100 MG IV (16:09)
[2022-03-27] MEDS: ciprofloxacin 400 MG/200 ML PREMIX 200 MG IV (16:09)
[2022-03-27 17:09] LABS: Sulfosalicylic Acid Urine Negative (Negative)
--- NOTE | 2022-03-27 19:16 | PM.HP ---
Providers/Chief Complaint Admitting Physician: Magy Perrin MD Primary Care Provider: Leighann Silva MD Chief Complaint: divierticulitis flair History of Present Illness Shyanne Jacome is a 61 year old female who has history of diverticulosis, presented to the hospital for chief complaint of worsening nausea vomiting. Patient is stating that her symptoms started roughly 6 days ago, on Monday she was experiencing abdominal cramps in left lower quadrant. On she started taking ciprofloxacin and Flagyl, on Monday her symptoms of nausea and vomiting started, today her symptoms worsened that prompted her visit to the ER. Patient is stating that her abdominal pain is getting worse, today she has had 6-8 episodes of semisolid bowel movement. She has not noticed any vomiting, chest pain, shortness of breath or fever. She has been trying to increase fiber however since Monday she has not been able to keep anything down. She is also endorsing weakness and presyncopal symptoms. No chest pain or syncopal episodes. Diagnostics in the ER revealed diverticulitis without abscess, white count is 15, hypokalemia, lactic acid is normal, magnesium is low. Request C. difficile panel, CT scan of abdomen pelvis showed diverticulitis, colitis presentation, pelvic fluid present fatty liver, bilateral cystic area noted could be related to ovarian tissue versus an abscess Patient is afebrile in the ER She had 6 episodes of semisolid loose BM in the ER Review of Systems Const: Reports: chills; Denies: fever(s) Eyes: Denies: change in vision ENMT: Denies: throat pain Card: Denies: chest pain Resp: Denies: dyspnea GI: Reports: abdominal pain, nausea and vomiting : Denies: flank pain Musc: Denies: neck pain Skin/Breast: Denies: rash Psych: Denies: anxiety Endo: Denies: polyuria Michael/Lymph: Denies: easy bruising All/Imm: Denies: urticaria Medications/Allergies Home Medications Medication Instructions Recorded Confirmed Last Taken Type albuterol sulfate 90 mcg/actuation 2 puff INHALATION Q6H PRN #8.5 g 12/10/21 03/27/22 01/18/22 11:00 Rx aerosol inhaler (Proventil HFA) montelukast 10 mg tablet 10 mg PO DAILY 90 Days #90 tab 12/10/21 03/27/2203/25/22 Rx cyclosporine 0.05 % eye drops in a 1 drp OPHTHALMIC (EYE) Q12H 01/05/22 03/27/22 03/25/22 History dropperette (Restasis) guaifenesin 600 mg tablet, 600 mg PO BID 01/05/22 03/27/22 03/27/22 History extended release 12 hr (Mucinex) omeprazole 20 mg tablet,delayed 20 mg PO DAILY 01/05/22 03/27/22 03/25/22 History release coconut oil 1,000 mg capsule 2,000 mg PO DAILY 01/10/22 03/27/22 03/25/22 History coenzyme Q10 100 mg capsule (Co 100 mg PO DAILY 01/10/22 03/27/22 03/25/22 History Q-10) d-mannose 500 mg capsule (AZO 1,000 mg PO DAILY 01/10/22 03/27/22 03/25/22 History D-Mannose) fluticasone propionate 50 1 spray INTRANASAL DAILY PRN g 01/10/22 03/27/22 01/18/22 10:00 History mcg/actuation nasal spray,suspension (Flonase Allergy Relief) milk thistle 175 mg tablet 175 mg PO BID 01/10/22 03/27/22 03/25/22 History tumeric 100 mg-armando 150 mg-olive 100 cap PO DAILY 01/10/22 03/27/22 03/25/22 History 50 mg-oreg 150 mg-caprylate capsule glucosamine sulfate 500 mg tablet 500 mg PO DAILY 01/17/22 03/27/22 03/25/22 History (Glucosamine) hydroxyzine HCl 25 mg tablet 25 mg PO BID 01/17/22 03/27/22 03/25/22 History vitamins A,C,B-zwia-oirzve 14,320 1 cap PO BID 01/17/22 03/27/22 03/25/22 History unit-226 mg-200 unit capsule (PreserVision AREDS) ciprofloxacin HCl 500 mg tablet 500 mg PO BID 7 Days #14 tab 03/24/22 03/27/22 03/27/22 Rx metronidazole 500 mg tablet 500 mg PO Q12H 7 Days #14 tab 03/24/22 03/27/22 03/27/22 Rx ondansetron HCl 4 mg tablet 4 mg PO Q6H PRN 03/27/22 03/27/22 Unknown History Allergies Allergy/AdvReac Type Severity Reaction Status Date / Time erythromycin base Allergy ADR-Nausea Verified 01/27/22 07:55 morphine Allergy ADR-Nausea Verified 01/27/22 07:55 diazepam [From Valium] AdvReac skin crawl Verified 01/27/22 07:55 PFSH Acute PFSH: Medical History Asthma COVID-19 Diverticulosis Eczema Hypertension Pseudotumor cerebri Seasonal allergies Surgical History History of cholecystectomy History of fusion of cervical spine Status post colonoscopy (01/07/22) diverticulosis -repeat in 10years Family History Father Liver failure Stroke Cancer skin Hypertension Mother CHF (congestive heart failure) Hypertension Grandfather Cancer Maternal--lung Denies family history of Diabetes Clotting disorder Chronic kidney disease (CKD) Bleeding disorder Thyroid disease Social History Smoking and tobacco status: never smoked Vitals/I&O/Wt Last Vital Signs Temp 98.0 F 03/27/22 16:18 Pulse 97 03/27/22 16:18 Resp 18 03/27/22 16:18 BP 132/82 03/27/22 16:18 Pulse Ox 97 03/27/22 16:18 03/27/22 03/27/22 03/27/22 06:59 14:59 22:59 Intake Total 100 / 100 Balance 100 / 100 Weight last 48 hrs Weight 95.254 kg Physical Exam Narrative: Patient was sitting at the bedside Saturating well on room air Afebrile Hemodynamically stable Abdomen soft no guarding or rigidity Left lower quadrant tenderness Bowel sounds are sluggish Abdomen is soft, No active nausea or vomiting S1, S2 No audible stridor or wheezing Nonfocal neuro exam Data : 03/27/22 13:27 03/27/22 13:27 A&P Assessment and plan (1) Dehydration: Status: Acute (2) Nausea and vomiting: Status: Acute (3) Leukocytosis: Status: Acute (4) Hypokalemia: Status: Acute (5) Hypomagnesemia: Status: Acute (6) Intra-abdominal fluid: Status: Acute (7) Diverticulitis: Status: Acute Plan Acute diverticulitis History of history of diverticulosis Patient is afebrile No signs of sepsis No guarding or rigidity She is having semisolid loose BM, will check C. difficile Stop p.o. Cipro and Flagyl, would use Zosyn Bilateral 30 mm cystic appearance could be related to ovarian tissue, in case of worsening of sepsis or febrile events consider general surgery consultation For now continue Zosyn, IV fluids, keep patient on clear liquids DVT prophylaxis: On board Patient is full code Patient is stating previous colonoscopies did not reveal any malignant potential Fatty liver: No acute decompensation Tylenol for fever Oxycodone and IV Dilaudid for as needed analgesia Hypokalemia, hypomagnesemia: Repleted Attestations Medical Necessity Statement*: Anticipating more than 2 midnights for management of diverticulitis Time Spent in Patient Care: 40mins Coding Level of Care Code Acute Historical Archeologist for Chg Fwd Diagnoses Dehydration E86.0 Nausea and vomiting R11.2 Leukocytosis D72.829 Hypokalemia E87.6 Hypomagnesemia E83.42 Intra-abdominal fluid R18.8 Diverticulitis K57.92
[2022-03-27] MEDS: magnesium sulfate premix 2 GM/50 ML PIGGYBACK IV ×2 (19:44→19:57)
[2022-03-27] MEDS: pantoprazole 40 mg SDV IVP (20:40)
[2022-03-27] MEDS: enoxaparin 40 mg/0.4 mL Syringe SUBCUT (20:40)
[2022-03-27] MEDS: lactated ringers 1,000 ML 100 ML IV (20:44)
[2022-03-27] MEDS: piperacillin-tazobactam 3.375 GM in sodium chloride 0.9% (plus) 50 ML IV (21:36)
[2022-03-27] MEDS: oxyCODONE 5 mg IR Tab/Cap PO (22:34)
[2022-03-28] VITALS: BP 122/60; PULSE 64; RESP 17; TEMP 37.4; O2SAT 98
[2022-03-28 04:00] VITALS: BP 99/61; PULSE 53; RESP 20; TEMP 36.8; O2SAT 97
[2022-03-28 04:50] LABS: Basophils % 0.4 %; Eosinophils # 0.1 10^3/uL (0.0-0.8); Eosinophils % 0.8 %; Hematocrit 36.7 % (37.0-47.0); Lymphocytes # 3.2 10^3/uL (0.8-4.8); Lymphocytes % 30.2 %; Mean Corpuscular HGB Conc 32.7 g/dL (30.0-36.0); Mean Corpuscular Hemoglobin 28.8 pg (28.0-34.0); Mean Platelet Volume 10.6 fL (7.4-10.4); Monocytes # 0.9 10^3/uL (0.2-0.9); Monocytes % 8.4 %; Neutrophils # 6.39 10^3/uL (1.8-7.7); Nucleated Red Blood Cells % 0 %; Platelet Count 273 10^3/cmm (130-400); Red Blood Count 4.17 10^6/uL (4.1-5.3); Red Cell Distribution Width 12.1 % (12.1-15.1); White Blood Count 10.7 10^3/uL (4.0-10.0)
[2022-03-28 05:06] LABS: Alanine Aminotransferase 17 U/L (0-33); Albumin Level 3.2 g/dL (3.5-5.2); Alkaline Phosphatase 120 IU/L (35-105); Anion Gap 16.1 (5-19); Aspartate Amino Transferase 29 U/L (0-32); Blood Urea Nitrogen 8 mg/dL (8-23); Calcium 7.9 mg/dL (8.5-10.5); Carbon Dioxide 21 mmol/L (22-29); Chloride 107 mmol/L (98-107); Globulin 2.4 g/dL (1.3-4.6); Glucose 95 mg/dL (65-115); Magnesium 2.2 mg/dL (1.7-2.3); Osmolality Calculated 288 mOsm/kg (285-295); Potassium 4.1 mmol/L (3.5-5.1); Sodium 140 mmol/L (136-145); Total Bilirubin 0.4 mg/dL (0.15-1.2); Total Protein 5.6 g/dL (6.6-8.7)
[2022-03-28 05:10] LABS: Procalcitonin 0.09 ng/mL (0-0.5)
[2022-03-28] MEDS: piperacillin-tazobactam 3.375 GM in sodium chloride 0.9% (plus) 50 ML IV ×3 (05:51→21:31)
[2022-03-28] MEDS: lactated ringers 1,000 ML 100 ML IV (06:48)
--- NOTE | 2022-03-28 07:54 | PM.PN ---
Subjective Subjective: Seen this AM. Pt reports nausea after drinking juice. Denies abdominal pain. at bedside. She says she has had 2 episodes prior of diverticulitis which resolved with cipro. She did not take flagyl as it made her sick (nausea). Patient says she eats the right foods but still got this 3rd episode. She also reports 2 mechanical falls after which both times she was constipated. She normally doesnt have constipation but has been having it lately. Vitals/I&O/Wt Last Vital Signs Temp 98.2 F 03/28/22 04:00 Pulse 53 L 03/28/22 04:00 Resp 20 H 03/28/22 04:00 BP 99/61 03/28/22 04:00 Pulse Ox 97 03/28/22 04:00 03/27/22 03/28/22 03/28/22 22:59 06:59 14:59 Intake Total 405 / 405 1305 / 1710 Balance 405 / 405 1305 / 1710 Weight last 48 hrs Weight 95.254 kg Weight 95.254 kg Physical Exam Narrative: General: Anxious female laying in bed appearing comfortable, slightly nauseated. Appears worried. HEENT: NC/AT, EOMI Lungs: CTA B/L, no w/r/c Heart: S1, S2 normal Abdomen: soft, slightly tender around right lower quadrant, non distended, BS + 4Q normoactive Extremities: No edema/cyanosis Behavior: Appropriate and cooperative Data : 03/28/22 04:15 03/28/22 04:15 A&P Assessment and plan (1) Diverticulitis: Status: Acute (2) Dehydration: Status: Acute (3) Nausea and vomiting: Status: Acute (4) Leukocytosis: Status: Acute (5) Hypokalemia: Status: Acute (6) Hypomagnesemia: Status: Acute (7) Intra-abdominal fluid: Status: Acute (8) Abnormal CT of the abdomen: Status: Acute (9) Diarrhea: Status: Acute Plan Acute diverticulitis History of history of diverticulosis Patient is afebrile No signs of sepsis No guarding or rigidity She is having semisolid loose BM, will check C. difficile Stop p.o. Cipro and Flagyl Continue zosyn. Bilateral 30 mm cystic appearance could be related to ovarian tissue, in case of worsening of sepsis or febrile events consider general surgery consultation For now continue Zosyn, IV fluids, keep patient on clear liquids DVT prophylaxis: On board Patient is full code Patient is stating previous colonoscopies did not reveal any malignant potential Fatty liver: No acute decompensation Tylenol for fever Oxycodone and IV Dilaudid for as needed analgesia Hypokalemia, hypomagnesemia: Repleted AN Will check stool ova culture parasite screen Check c.diff lactoferrin culture blood urine culture bladder scan stay on clears TVS to evaluate ovary vs. abscess? 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
[2022-03-28 07:56] VITALS: BP 129/74; PULSE 70; RESP 20; TEMP 36.4; O2SAT 100
--- NOTE | 2022-03-28 10:53 | PC.CHAP ---
Pastoral Care Encounter/Spiritual Assessment Type of Contact [] Declined head up operator helper visit [] Patient/Family/Request visit [] Outpatient visit [] Follow-up visit [] Physician referral [] Code/Alert [x] Routine visit [] Staff referral [] Actively dying [] Patient sleeping [] Family support [] [] Out of room [] Palliative care [] [] Receiving care in room [] Pre-surgical visit [] Trauma [] Long length of stay [] ICU visit [] Other: Relational/Emotional Strength [x] Patient feels connected with others/family/visitors/staff [] Distress [] Loneliness/isolation [] Abandonment Spirituality of Patient [x] Person of [place] []x Attends Zoroastrianism of their [place] [x] Believes in Prayer [] Reads Bible or Restorationist materials [] There are Spiritual issues to be addressed Debit Agent Interventions [x] Prayer [x] Active listening [x] Non-anxious presence [] Spiritual/emotional support [] Crisis/trauma care [] Spiritual counseling [] Bereavement support [] Provided bereavement packet [] Provided Bible/devotional materials [] Provided toy/stuffed animal, coloring book to patient or family member [] Provided Communion [] Anointing/[place] [] Salvation [x] Completed spiritual assessment [] Other: Impact on Illness or Injury [] Angry [] Fearful [] Anxious [] Often cries [] Exhaustion [] Unable to work [] Unable to attend baptism [] Unable to walk/stand [] Unable to read [] Unable to drive [] Unable to eat/drink [] Unable to sleep [] Unable to be with family [] Patient intubated [] Other: Summary Time spent with patient 15 min
--- NOTE | 2022-03-28 11:05 | USR_ITS ---
PROCEDURE INFORMATION: Exam: US Nonobstetric Pelvis; Complete Exam date and time: 03/28/2022 4:01 PM Age: 61 years old Clinical indication: Other: Left lower quadrant pain; Additional info: Ovary vs. Abscess noted on CT scan. , Rule out abscess around ovarian area. Please call me for TECHNIQUE: Imaging protocol: Transabdominal pelvic nonobstetric ultrasound. Complete exam. Real time ultrasound with image documentation. COMPARISON: US pelvic complete* [id number] 11/18/2021 9:56 AM FINDINGS: Uterus: The uterus is anteverted. Contours are normal. The uterus measures 6.2 x 3.8 x 3.0 cm. The endometrium is homogenous. Endometrial stripe thickness measures 10 mm Right ovary/adnexa: The right ovary is not visible. Left ovary/adnexa: The left ovary is not visible. Intraperitoneal space: There is loculated pelvic fluid. A locule superior to the bladder measures 3.6 x 3.3 x 2.[address], this communicates with fluid in the deep pelvis and inferior to the left adnexa. Urinary bladder: Unremarkable. US/US pelvic complete* [id number] IMPRESSION: Loculated pelvic fluid as seen on CT. Infection is a possibility. The ovaries are not visible by transabdominal ultrasound.
[2022-03-28 12:00] VITALS: BP 138/68; PULSE 103; TEMP 36.1; O2SAT 100
[2022-03-28 16:00] VITALS: BP 143/73; PULSE 66; RESP 18; TEMP 36.8; O2SAT 98
[2022-03-28] MEDS: pantoprazole 40 mg SDV IVP (18:34)
[2022-03-28] MEDS: enoxaparin 40 mg/0.4 mL Syringe SUBCUT (18:34)
[2022-03-28 20:00] VITALS: BP 130/80; PULSE 54; RESP 17; TEMP 36.8; O2SAT 96
[2022-03-29] VITALS (7 sets, daily range): BP systolic 135–148; BP diastolic 63–84; PULSE 48–66; RESP 16–18; TEMP 36.6–36.9; O2SAT 96–98
[2022-03-29 03:14] LABS: Basophils # 0.1 10^3/uL (0.0-0.1); Basophils % 0.8 %; Eosinophils # 0.2 10^3/uL (0.0-0.8); Eosinophils % 2.4 %; Hematocrit 42.7 % (37.0-47.0); Hemoglobin 13.6 g/dL (11.5-15.3); Lymphocytes % 39.5 %; Mean Corpuscular HGB Conc 31.9 g/dL (30.0-36.0); Mean Corpuscular Hemoglobin 29.1 pg (28.0-34.0); Mean Corpuscular Volume 91.4 fl (81-99); Mean Platelet Volume 10.9 fL (7.4-10.4); Monocytes # 0.7 10^3/uL (0.2-0.9); Monocytes % 8.5 %; Neutrophils # 3.72 10^3/uL (1.8-7.7); Neutrophils % 48.7 %; Nucleated Red Blood Cells % 0 %; Platelet Count 274 10^3/cmm (130-400); Red Blood Count 4.67 10^6/uL (4.1-5.3); Red Cell Distribution Width 12.1 % (12.1-15.1); White Blood Count 7.6 10^3/uL (4.0-10.0)
[2022-03-29 03:37] LABS: Blood Urea Nitrogen 6 mg/dL (8-23); Calcium 8.1 mg/dL (8.5-10.5); Carbon Dioxide 19 mmol/L (22-29); Chloride 105 mmol/L (98-107); Glomerular Filtration Rate 125.9 mL/min (90-130); Glucose 93 mg/dL (65-115); Osmolality Calculated 281 mOsm/kg (285-295); Sodium 137 mmol/L (136-145)
[2022-03-29 03:38] LABS: Slide Review Slide Review Perform
[2022-03-29 03:39] LABS: Anion Gap 16.7 (5-19); Potassium 3.7 mmol/L (3.5-5.1)
[2022-03-29] MEDS: piperacillin-tazobactam 3.375 GM in sodium chloride 0.9% (plus) 50 ML IV ×2 (05:24→12:18)
[2022-03-29] MEDS: lactated ringers 1,000 ML 100 ML IV (09:25)
--- NOTE | 2022-03-29 10:36 | PM.PN ---
Subjective Subjective: Seen this morning. present at bedside Her nausea is also improved. C. difficile negative. Vitals/I&O/Wt Last Vital Signs Temp 98.1 F 03/29/22 07:49 Pulse 48 L 03/29/22 07:49 Resp 18 03/29/22 07:49 BP 145/71 03/29/22 07:49 Pulse Ox 97 03/29/22 07:49 03/28/22 03/29/22 03/29/22 22:59 06:59 14:59 Intake Total 1630 / 1680 150 / 1830 530 / 530 Output Total 250 / 250 Balance 1380 / 1430 150 / 1580 530 / 530 Weight last 48 hrs Weight 95.254 kg Weight 95.254 kg Physical Exam Narrative: General: Anxious female laying in bed appearing comfortable, HEENT: NC/AT, EOMI Lungs: CTA B/L, no w/r/c Heart: S1, S2 normal Abdomen: soft, slightly tender around right lower quadrant, non distended, BS + 4Q normoactive, overall exam improved compared to yesterday Extremities: No edema/cyanosis Behavior: Appropriate and cooperative Data : 03/29/22 02:59 03/29/22 02:59 Micro: Microbiology 03/27/22 13:09 Urine Culture - Preliminary Urine,Clean Catch 03/28/22 20:20 Stool Lactoferrin - Final Stool C.difficile Toxin B Gene (PCR) - Final 03/28/22 20:20 Occult Blood (FIT) - Final Stool Routine Collection 03/28/22 19:35 Blood Culture - Preliminary Blood SPECIMEN COLLECTED 03/28/22 12:30 Blood Culture - Preliminary Blood SPECIMEN COLLECTED A&P Assessment and plan (1) Diverticulitis: Status: Acute (2) Dehydration: Status: Acute (3) Leukocytosis: Status: Acute (4) Hypokalemia: Status: Acute (5) Nausea and vomiting: Status: Acute (6) Diarrhea: Status: Acute (7) Hypomagnesemia: Status: Acute (8) Intra-abdominal fluid: Status: Acute (9) Abnormal CT of the abdomen: Status: Acute Plan #Acute diverticulitis with possible colitis #Nausea vomiting, dehydration #Electrolyte imbalance #Possible fluid collection intra-abdominally ? Pavement remained afebrile throughout hospital stay no signs of sepsis no guarding or rigidity. She did endorse having semisolid loose bowel movements. She was on Cipro and Flagyl outpatient. There was stopped and she was started on Zosyn. ? Continue Zosyn ? Continue IV fluids ? Advance diet to full liquids and GI soft by the evening if patient can tolerate. ? Pelvic ultrasound done yesterday. Patient refused to have transvaginal ultrasound. Pelvic ultrasound showed a possible fluid collection in pelvic area that could possibly be an evolving abscess. Case was discussed with radiologist. He recommended to repeat a CT scan with IV contrast in 48 hours to rule out definitive abscess. He said right now the fluid collection is not big enough to be aspirated. ? Bladder scan done today. No urinary retention present. ? Blood culture pending negative to date. ? Unable to visualize ovaries since patient declined to have transvaginal ultrasound at this time. She can possibly follow this up as an outpatient. ? Stool ova culture parasite screen pending ? We will advance diet and see if patient can tolerate. ?Repeat CAT scan tomorrow evening. Full code Attestations Medical Necessity Statement*: Greater than 48-hour stay at this time. Need to repeat CAT scan 03/30/2022 to rule out definitive abscess. Patient will need to stay inpatient for management of acute diverticulitis. Coding Level of Care Code Acute Building Maintenance Technician for [facility] Diagnoses Diverticulitis K57.92 Dehydration E86.0 Leukocytosis D72.829 Hypokalemia E87.6 Nausea and vomiting R11.2 Diarrhea R19.7 Hypomagnesemia E83.42 Intra-abdominal fluid R18.[address] of the abdomen R93.5
--- NOTE | 2022-03-29 10:40 | ECG_ITS ---
[facility] Test Date: 2022-03-29 Pat Name: Shyanne Jacome Department: Room: 276 Gender: Female Housing Specialist: : [id number] Requested By: Magy Perrin Order Number: [id number] Dhiraj MD: Gustavo Morales M.D. Measurements Intervals [place] Rate: 76 P: 13 DC: 162 QRS: -9 QRSD: 80 T: 30 QT: 367 QTc: 415 Interpretive Statements SINUS RHYTHM WITH FREQUENT VENTRICULAR PREMATURE COMPLEXES LOW QRS VOLTAGE IN PRECORDIAL LEADS [QRS DEFLECTION < 1.0 mV IN CHEST LEADS] POSSIBLE INFERIOR MYOCARDIAL INFARCTION , OF INDETERMINATE AGE [30 ms Q WAVE IN II/aVF] No previous ECG available for comparison Electronically Signed On 03-29-2022 20:49:25 CDT by Gustavo Morales M.D. [id number]
--- NOTE | 2022-03-29 19:32 | PC.NURSE ---
i reported low pulse 57 to nurse
[2022-03-29] MEDS: enoxaparin 40 mg/0.4 mL Syringe SUBCUT (20:35)
[2022-03-29] MEDS: pantoprazole 40 mg SDV IVP (20:36)
[2022-03-30] MEDS: piperacillin-tazobactam 3.375 GM in sodium chloride 0.9% (plus) 50 ML IV ×3 (00:17→16:53)
[2022-03-30 03:56] LABS: Basophils % 0.5 %; Eosinophils # 0.2 10^3/uL (0.0-0.8); Hematocrit 41.8 % (37.0-47.0); Hemoglobin 13.4 g/dL (11.5-15.3); Lymphocytes # 3.7 10^3/uL (0.8-4.8); Lymphocytes % 44.6 %; Mean Corpuscular HGB Conc 32.1 g/dL (30.0-36.0); Mean Corpuscular Hemoglobin 28.7 pg (28.0-34.0); Mean Corpuscular Volume 89.5 fl (81-99); Mean Platelet Volume 10.4 fL (7.4-10.4); Monocytes # 0.6 10^3/uL (0.2-0.9); Monocytes % 6.9 %; Neutrophils # 3.82 10^3/uL (1.8-7.7); Neutrophils % 45.6 %; Nucleated Red Blood Cells % 0 %; Platelet Count 321 10^3/cmm (130-400); Red Blood Count 4.67 10^6/uL (4.1-5.3); Red Cell Distribution Width 12.1 % (12.1-15.1); White Blood Count 8.4 10^3/uL (4.0-10.0)
[2022-03-30 04:00] VITALS: BP 136/70; PULSE 64; RESP 18; TEMP 36.5; O2SAT 95
[2022-03-30 04:16] LABS: Anion Gap 13.5 (5-19); Blood Urea Nitrogen 6 mg/dL (8-23); Calcium 9.3 mg/dL (8.5-10.5); Carbon Dioxide 24 mmol/L (22-29); Chloride 107 mmol/L (98-107); Glucose 100 mg/dL (65-115); Osmolality Calculated 290 mOsm/kg (285-295); Potassium 3.5 mmol/L (3.5-5.1); Sodium 141 mmol/L (136-145)
[2022-03-30] MEDS: lactated ringers 1,000 ML 75 ML IV (05:46)
[2022-03-30 08:17] VITALS: BP 143/91; PULSE 67; RESP 18; TEMP 36.6; O2SAT 97
[2022-03-30 12:00] VITALS: BP 126/68; PULSE 73; RESP 16; TEMP 36.8; O2SAT 96
--- NOTE | 2022-03-30 15:00 | CTR_ITS ---
PROCEDURE INFORMATION: Exam: CT Abdomen And Pelvis With Contrast Exam date and time: 03/30/2022 4:42 PM Age: 61 years old Clinical indication: Abdominal pain; Prior surgery; Additional info: Possible abd. Abscess TECHNIQUE: Imaging protocol: Computed tomography of the abdomen and pelvis with contrast. Radiation optimization: All CT scans at this facility use at least one of these dose optimization techniques: automated exposure control; mA and/or kV adjustment per patient size (includes targeted exams where dose is matched to clinical indication); or iterative reconstruction. Contrast material: OMNI 350; Contrast volume: 95 ml; Contrast route: INTRAVENOUS (IV); COMPARISON: CT abdomen pelvis w con* [id number] 03/27/2022 2:[address] abdomen pelvis 12/09/2021 RADIATION DOSE METRICS: Total DLP (mGy-cm): 1655.67 FINDINGS: Liver: Normal. No mass. Gallbladder and bile ducts: Normal. No calcified stones. No ductal dilation. Pancreas: Normal. No ductal dilation. Spleen: Normal. No splenomegaly. Adrenal glands: Normal. No mass. Kidneys and ureters: 1 mm left renal calculus. Left renal cyst, Hounsfield units less than 20. The larger cyst has thin wall calcifications. No hydronephrosis. Stomach and bowel: Improved diverticulitis and fat stranding in the proximal sigmoid colon. Improved wall thickening of the sigmoid colon. Diverticulosis of the colon. The stomach and small bowel are unremarkable. No obstruction. Appendix: The appendix is visualized and is normal. Intraperitoneal space: Stable loculated appearing fluid collection in the posterior left pelvis without peripheral enhancement. Mild fluid in the cul-de-sac. Vasculature: Unremarkable. No abdominal aortic aneurysm. Lymph nodes: Unremarkable. No enlarged lymph nodes. Urinary bladder: Unremarkable as visualized. Reproductive: 3.7 cm oval cyst in the anterior left pelvis, Hounsfield units less than 20. This is separate from the left ovary. The uterus and ovaries are unremarkable. Bones/joints: Degenerative changes of the spine. No fracture. Soft tissues: Fat containing umbilical hernia. Medication injection sites in the anterior abdominal wall. CT/CT abdomen pelvis w con* [id number] IMPRESSION: 1. Improved sigmoid diverticulitis and colitis. 2. Stable 3.7 cm oval cystic lesion in the anterior left pelvis. This has no peripheral enhancement and most likely represents a seroma or loculated ascites. An abscess is considered less likely. 3. Stable chronic nonenhancing fluid collection in the posterior left pelvis, most likely loculated ascites. COMMENTS: Consistent with the [employer]'s Incidental Findings Committee white paper (J Am Marlen Radiol 2018): Any incidental renal lesion less than 1 cm or classified as too small to characterize, or any incidental cystic renal lesion characterized as simple-appearing, is likely benign. No follow-up imaging is recommended for these lesions per consensus recommendations based on imaging criteria.
[2022-03-30] MEDS: fluticasone nasal spray 16gm Btl 1 SPRAY INTRANASAL (15:23)
--- NOTE | 2022-03-30 16:16 | P.DS_ITS ---
Discharge Providers Date of Admission: 03/27/22 16:40 Date of Discharge: March 30, 2022 Attending Provider at Admission: Magy Perrin MD Attending Provider at Discharge: Magy Perrin MD Primary Care Provider: Leighann Silva MD Diagnoses at Discharge Discharge Diagnosis (1) Diverticulitis: Status: Acute (2) Dehydration: Status: Acute (3) Leukocytosis: Status: Acute (4) Hypokalemia: Status: Acute (5) Nausea and vomiting: Status: Acute (6) Diarrhea: Status: Acute (7) Hypomagnesemia: Status: Acute (8) Intra-abdominal fluid: Status: Acute (9) Abnormal CT of the abdomen: Status: Acute Reason for Visit Reason for Visit: divierticulitis flair Discharge Data Studies Completed and Pending Completed Studies During Hospitalization Category Date Time Status CT abdomen pelvis w con* [id number] Urgent Cat Scan 03/27/22 13:18 Completed US pelvic complete* [id number] Urgent Ultrasound 03/28/22 11:05 Completed Pending at discharge Category Date Time Status CT abdomen pelvis w con* [id number] Routine Cat Scan 03/30/22 15:00 Ordered Blood Culture Stat Lab 03/28/22 19:35 Results Helicobacter Pylori AG Stool Stat Lab 03/28/22 20:20 Received Radiology Impressions Abdomen/Pelvis CT 03/27/22 13:18 IMPRESSION: 1. Moderate segment distal sigmoid colon and sigmoid colon bowel wall thickening with inflammatory changes surrounding. Slightly longer in length to be consistent with acute diverticulitis and possibly represents a colitis. 2. Cystic area noted associated with a diverticula and the colon in the pelvis. Questionable ovary versus abscess as the uterus is still present. Second similar area is stable posteriorly on the left. 3. Pelvic fluid. 4. Large fatty liver. 5. Stable left renal cysts and calcifications without hydronephrosis. COMMENTS: Consistent with the [employer]'s Incidental Findings Committee white paper (J Am Marlen Radiol 2018): Any incidental renal lesion less than 1 cm or classified as too small to characterize, or any incidental cystic renal lesion characterized as simple-appearing, is likely benign. No follow-up imaging is recommended for these lesions per consensus recommendations based on imaging criteria. Pelvis Ultrasound 03/28/22 11:05 IMPRESSION: Loculated pelvic fluid as seen on CT. Infection is a possibility. The ovaries are not visible by transabdominal ultrasound. ADDENDUM: 03/28/22 183 THIS REPORT CONTAINS FINDINGS THAT MAY BE CRITICAL TO PATIENT CARE. The findings were verbally communicated via telephone conference with Magy Perrin at 6:32 PM CDT on 03/28/2022. The findings were acknowledged and understood. Laboratory Results WBC 8.4 10^3/uL (4.0-10.0) 03/30/22 03: RBC 4.67 10^6/uL (4.1-5.3) 03/30/22 03:22 Hgb 13.4 g/dL (11.5-15.3) 03/30/22 03:22 Hct 41.8 % (37.0-47.0) 03/30/22 03: MCV 89.5 fl (81-99) 03/30/22 03: MCH 28.7 pg (28.0-34.0) 03/30/22 03: MCHC 32.1 g/dL (30.0-36.0) 03/30/22 03: RDW 12.1 % (12.1-15.1) 03/30/22 03:22 Plt Count 321 10^3/cmm (130-400) 03/30/22 03: MPV 10.4 fL (7.4-10.4) 03/30/22 03: Neut % (Auto) 45.6 % 03/30/22 03: Lymph % (Auto) 44.6 % 03/30/22 03: [place] % (Auto) 6.9 % 03/30/22 03: Eos % (Auto) 2.0 % 03/30/22 03: Baso % (Auto) 0.5 % 03/30/22 03:22 Neut # (Auto) 3.82 10^3/uL (1.8-7.7) 03/30/22 03: Lymph # (Auto) 3.7 10^3/uL (0.8-4.8) 03/30/22 03:22 [place] # (Auto) 0.6 10^3/uL (0.2-0.9) 03/30/22 03:22 Eos # (Auto) 0.2 10^3/uL (0.0-0.8) 03/30/22 03:22 Baso # (Auto) 0.0 10^3/uL (0.0-0.1) 03/30/22 03:22 Nucleated RBC % (auto) 0 % 03/30/22 03:22 Nucleated RBCs # 0.0 /100WBC 03/30/22 03:22 Sodium 141 mmol/L (136-145) 03/30/22 03:22 Potassium 3.5 mmol/L (3.5-5.1) 03/30/22 03:22 Chloride 107 mmol/L (98-107) 03/30/22 03:22 Carbon Dioxide 24 mmol/L (22-29) 03/30/22 03:22 Anion Gap 13.5 (5-19) 03/30/22 03:22 BUN 6 mg/dL (8-23) L 03/30/22 03:22 Creatinine 0.6 mg/dL (0.5-0.9) 03/30/22 03:22 GFR Calculation 102.0 mL/min (90-130) 03/30/22 03:22 Glucose 100 mg/dL (65-115) 03/30/22 03:22 Calculated Osmolality 290 mOsm/kg (285-295) 03/30/22 03:22 Lactic Acid 1.0 mmol/L (0.5-2.2) 03/27/22 15:05 Calcium 9.3 mg/dL (8.5-10.5) 03/30/22 03:22 Ionized Calcium Seth 1.1 mmol/L (1.1-1.4) 03/27/22 15:08 Magnesium 2.0 mg/dL (1.7-2.3) 03/30/22 03:22 Total Bilirubin 0.4 mg/dL (0.15-1.2) 03/28/22 04:15 AST 29 U/L (0-32) 03/28/22 04:15 ALT 17 U/L (0-33) 03/28/22 04:15 Alkaline Phosphatase 120 IU/L (35-105) H 03/28/22 04:15 Total Protein 5.6 g/dL (6.6-8.7) L 03/28/22 04:15 Albumin 3.2 g/dL (3.5-5.2) L 03/28/22 04:15 Globulin 2.4 g/dL (1.3-4.6) 03/28/22 04:15 Lipase 12 U/L (13-60) L 03/27/22 13:27 Procalcitonin 0.09 ng/mL (0-0.5) 03/28/22 04:15 Urine Color Yellow (Yellow) 03/27/22 13:09 Urine Appearance Clear (CLEAR) 03/27/22 13:09 Urine pH 8 (5-7) H 03/27/22 13:09 Ur Specific [place] 1.010 (1.005-1.030) 03/27/22 13:09 Urine Protein Neg (Negative) 03/27/22 13:09 Urine Glucose (UA) Norm (Normal) 03/27/22 13:09 Urine Ketones 2+ (Negative) H 03/27/22 13:09 Urine Blood Neg (Negative) 03/27/22 13:09 Urine Nitrate Negative (Negative) 03/27/22 13:09 Urine Bilirubin Neg (Negative) 03/27/22 13:09 Prot Sulfosalicylic Acd Negative (Negative) 03/27/22 13:09 Urine Urobilinogen Norm mg/dL (Negative) 03/27/22 13:09 Ur Leukocyte Esterase 1+ (Negative) H 03/27/22 13:09 Urine RBC None /hpf (0-2) 03/27/22 13:09 Urine WBC 0-4 /hpf (0-5) H 03/27/22 13:09 Ur Squamous Epith Cells 0-4 /hpf (0-5) H 03/27/22 13:09 Amorphous Sediment Not Reportable 03/27/22 13:09 Urine Bacteria 1+ /hpf (NONE) H 03/27/22 13:09 Vitals Last Vital Signs Temp 98.2 F 03/30/22 12:00 Pulse 73 03/30/22 12:00 Resp 16 03/30/22 12:00 BP 126/68 03/30/22 12:00 Pulse Ox 96 03/30/22 12:00 Discharge Plan Discharge Patient Disposition: Home Condition: Stable Prescriptions: New amoxicillin-pot clavulanate 875-125 mg tablet 1 tab PO Q8H 8 Days Qty: 24 0RF Continued albuterol sulfate [Proventil HFA] 90 mcg/actuation HFA aerosol inhaler 2 puff inhalation Q6H PRN (Reason: ASTHMA) Qty: 8.5 6RF montelukast 10 mg tablet 10 mg PO DAILY 90 Days Qty: 90 2RF milk thistle 175 mg tablet 175 mg PO BID 0RF Rx Instructions: give with meal/snack fluticasone propionate [Flonase Allergy Relief] 50 mcg/actuation spray,suspension 1 spray intranasal DAILY PRN (Reason: Allergic Symptoms) 0RF Rx Instructions: administer into each nostril hydroxyzine HCl 25 mg tablet 25 mg PO BID 0RF PreserVision AREDS [id number] Capsule 1 cap PO BID 0RF Restasis 0.05 % Dropperette 1 drp OPHTHALMIC (EYE) Q12H 0RF guaifenesin [Mucinex] 600 mg Tablet Extended Release 12hr 600 mg PO BID 0RF omeprazole 20 mg Tablet,Delayed Release (Dr/Ec) 20 mg PO DAILY 0RF ondansetron HCl 4 mg tablet 4 mg PO Q6H PRN (Reason: Nausea) 0RF Held coenzyme Q10 [Co Q-10] 100 mg capsule 100 mg PO DAILY 0RF Hold Instructions: see primary care before resuming coconut oil 1,000 mg capsule 2,000 mg PO DAILY 0RF Hold Instructions: see primary care before resuming AZO D-Mannose 500 mg capsule 1,000 mg PO DAILY 0RF Hold Instructions: see primary care before resuming eaepvxu-lhgw-fdtih-oreg-capryl 100 mg-150 mg- 50 mg-150 mg capsule 100 cap PO DAILY 0RF Hold Instructions: see primary care before resuming glucosamine sulfate [Glucosamine] 500 mg Tablet 500 mg PO DAILY 0RF Hold Instructions: see primary care before resuming Discontinued ciprofloxacin HCl 500 mg tablet 500 mg PO BID 7 Days Qty: 14 0RF metronidazole 500 mg tablet 500 mg PO Q12H 7 Days Qty: 14 0RF Referrals: Leighann Silva MD [Primary Care Provider] - 4-7 days Discharge Diet: GI Soft Discharge Activity: Resume usual activity and Increase activity as tolerated Patient Instructions: Opioid Safety Coding Level of Care Code Acute Chg FW DC note Diagnoses Diverticulitis K57.92 Dehydration E86.0 Leukocytosis D72.829 Hypokalemia E87.6 Nausea and vomiting R11.2 Diarrhea R19.7 Hypomagnesemia E83.42 Intra-abdominal fluid R18.[address] of the abdomen R93.5
[2022-03-30] MEDS: iohexol 350 mg/mL 100 mL Btl IV (16:50)
[2022-03-30] MEDS: hyDROXYzine 25 mg Capsule PO (16:53)
[2022-03-30] MEDS: acetaminophen 325 mg Tablet PO (17:33)
[2022-03-30] MEDS: guaiFENesin 600 mg Tablet PO (17:33)
--- NOTE | 2022-03-30 17:39 | P.PN_ITS ---
Subjective Subjective: seen this am. repeat ct scan shows loculated ascites. pt feels better. Vitals/I&O/Wt Last Vital Signs Temp 98.2 F 03/30/22 12:00 Pulse 73 03/30/22 12:00 Resp 16 03/30/22 12:00 BP 126/68 03/30/22 12:00 Pulse Ox 96 03/30/22 12:00 03/30/22 03/30/22 03/30/22 06:59 14:59 22:59 Intake Total 546.667 / 1970.000 530 / 530 Balance 546.667 / 1970.000 530 / 530 Physical Exam Narrative: General: Anxious female laying in bed appearing comfortable, HEENT: NC/AT, EOMI Lungs: CTA B/L, no w/r/c Heart: S1, S2 normal Abdomen: soft,non tender, non distended, BS + 4Q normoactive, overall exam improved compared to yesterday Extremities: No edema/cyanosis Behavior: Appropriate and cooperative Data : 03/30/22 03:22 03/30/22 03:22 Micro: Microbiology 03/27/22 13:09 Urine Culture - Final Urine,Clean Catch 03/28/22 19:35 Blood Culture - Preliminary Blood NEGATIVE TO DATE 03/28/22 12:30 Blood Culture - Preliminary Blood NEGATIVE TO DATE A&P Assessment and plan (1) Diarrhea: Status: Acute (2) Diverticulitis: Status: Acute (3) Dehydration: Status: Acute (4) Nausea and vomiting: Status: Acute (5) Leukocytosis: Status: Acute (6) Hypokalemia: Status: Acute (7) Hypomagnesemia: Status: Acute (8) Intra-abdominal fluid: Status: Acute (9) Abnormal CT of the abdomen: Status: Acute (10) Endometrial hyperplasia, unspecified: Status: Acute (11) Nausea: Status: Acute (12) Abdominal pain: Status: Acute Plan #Acute diverticulitis with possible colitis #Nausea vomiting, dehydration #Electrolyte imbalance #Possible fluid collection intra-abdominally ? Pavement remained afebrile throughout hospital stay no signs of sepsis no guarding or rigidity.? She did endorse having semisolid loose bowel movements.? She was on Cipro and Flagyl outpatient.? There was stopped and she was started on Zosyn. ? Continue Zosyn ? Continue IV fluids ? Advance diet to full liquids and GI soft by the evening if patient can tolerate. ? Pelvic ultrasound done yesterday.? Patient refused to have transvaginal ultrasound.? Pelvic ultrasound showed a possible fluid collection in pelvic area that could possibly be an evolving abscess.? Case was discussed with radiologist.? He recommended to repeat a CT scan with IV contrast in 48 hours to rule out definitive abscess.? He said right now the fluid collection is not big enough to be aspirated. (03/28) ? Bladder scan done today.? No urinary retention present. ? Blood culture pending negative to date. ? Unable to visualize ovaries since patient declined to have transvaginal ultrasound at this time.? She can possibly follow this up as an outpatient. ? Stool ova culture parasite screen pending ? We will advance diet and see if patient can tolerate. ?Repeat CAT scan shows loculated ascites. - Order IR drainage of loculated ascites and send for culture and cytology. - Will need outpatient f/u with gen surgery as this is 3rd occurance of divirticulitis. Full code Attestations Medical Necessity Statement*: IR drainage of loculated ascites in AM. Coding Level of Care Code Acute Geologist [employer] for Chg Fwd Diagnoses Diarrhea R19.7 Diverticulitis K57.92 Dehydration E86.0 Nausea and vomiting R11.2 Leukocytosis D72.829 Hypokalemia E87.6 Hypomagnesemia E83.42 Intra-abdominal fluid R18.[address] of the abdomen R93.5 Endometrial hyperplasia, unspecified N85.00 Nausea R11.0 Abdominal pain R10.9
[2022-03-30] MEDS: pantoprazole 40 mg SDV IVP (18:50)
[2022-03-30 20:00] VITALS: BP 145/57; PULSE 95; RESP 20; TEMP 36.6; O2SAT 97
[2022-03-30 23:16] VITALS: O2SAT 95
[2022-03-31] VITALS: BP 136/50; PULSE 84; RESP 17; O2SAT 95
[2022-03-31] MEDS: piperacillin-tazobactam 3.375 GM in sodium chloride 0.9% (plus) 50 ML IV ×2 (00:24→08:18)
[2022-03-31 04:00] VITALS: BP 138/63; PULSE 57; RESP 17; TEMP 36.5; O2SAT 96
[2022-03-31 05:50] LABS: Basophils # 0.1 10^3/uL (0.0-0.1); Basophils % 0.6 %; Eosinophils # 0.2 10^3/uL (0.0-0.8); Eosinophils % 2.5 %; Hematocrit 40.9 % (37.0-47.0); Hemoglobin 12.6 g/dL (11.5-15.3); Lymphocytes # 3.3 10^3/uL (0.8-4.8); Lymphocytes % 42.2 %; Mean Corpuscular HGB Conc 30.8 g/dL (30.0-36.0); Mean Corpuscular Hemoglobin 28.6 pg (28.0-34.0); Mean Corpuscular Volume 92.7 fl (81-99); Mean Platelet Volume 10.4 fL (7.4-10.4); Monocytes # 0.6 10^3/uL (0.2-0.9); Monocytes % 7.4 %; Neutrophils # 3.64 10^3/uL (1.8-7.7); Nucleated Red Blood Cells % 0 %; Platelet Count 285 10^3/cmm (130-400); Red Blood Count 4.41 10^6/uL (4.1-5.3); Red Cell Distribution Width 12.1 % (12.1-15.1); White Blood Count 7.7 10^3/uL (4.0-10.0)
[2022-03-31] MEDS: lactated ringers 1,000 ML 75 ML IV (05:51)
[2022-03-31 06:16] LABS: Anion Gap 14.6 (5-19); Blood Urea Nitrogen 6 mg/dL (8-23); Calcium 9.1 mg/dL (8.5-10.5); Carbon Dioxide 20 mmol/L (22-29); Chloride 109 mmol/L (98-107); Glucose 88 mg/dL (65-115); Osmolality Calculated 287 mOsm/kg (285-295); Potassium 3.6 mmol/L (3.5-5.1); Sodium 140 mmol/L (136-145)
[2022-03-31 08:00] VITALS: BP 159/67; PULSE 61; RESP 16; TEMP 36.4; O2SAT 97
[2022-03-31] MEDS: guaiFENesin 600 mg Tablet PO ×2 (08:20→17:21)
[2022-03-31] MEDS: hyDROXYzine 25 mg Capsule PO (08:20)
[2022-03-31] MEDS: montelukast sodium 10 mg Tablet PO (08:20)
--- NOTE | 2022-03-31 10:58 | PM.DCS ---
Discharge Providers Date of Admission: 03/27/22 16:40 Date of Discharge: March 31, 2022 Attending Provider at Admission: Magy Perrin MD Attending Provider at Discharge: Magy Perrin MD Primary Care Provider: Leighann Silva MD Diagnoses at Discharge Discharge Diagnosis (1) Diarrhea: Status: Acute (2) Diverticulitis: Status: Acute (3) Dehydration: Status: Acute (4) Nausea and vomiting: Status: Acute (5) Leukocytosis: Status: Acute (6) Hypokalemia: Status: Acute (7) Hypomagnesemia: Status: Acute (8) Intra-abdominal fluid: Status: Acute (9) Abnormal CT of the abdomen: Status: Acute (10) Endometrial hyperplasia, unspecified: Status: Acute (11) Nausea: Status: Acute (12) Abdominal pain: Status: Acute Reason for Visit Reason for Visit: divierticulitis flair Brief History: Shyanne Jacome is a 61 year old female who has history of diverticulosis, presented to the hospital for chief complaint of worsening nausea vomiting.? Patient is stating that her symptoms started roughly 6 days ago, on Monday she was experiencing abdominal cramps in left lower quadrant.? On she started taking ciprofloxacin and Flagyl, on Monday her symptoms of nausea and vomiting started, today her symptoms worsened that prompted her visit to the ER. Patient is stating that her abdominal pain is getting worse, today she has had 6-8 episodes of semisolid bowel movement.? She has not noticed any vomiting, chest pain, shortness of breath or fever.? She has been trying to increase fiber however since Monday she has not been able to keep anything down.? She is also endorsing weakness and presyncopal symptoms.? No chest pain or syncopal episodes. Diagnostics in the ER revealed diverticulitis without abscess, white count is 15, hypokalemia, lactic acid is normal, magnesium is low. Request C. difficile panel, CT scan of abdomen pelvis showed diverticulitis, colitis presentation, pelvic fluid present fatty liver, bilateral cystic area noted could be related to ovarian tissue versus an abscess Patient is afebrile in the ER She had 6 episodes of semisolid loose BM in the ER Hospital Course Hospital Course Patient was admitted for diverticulitis. She was treated with IV Zosyn. Patient did take Cipro and Flagyl as an outpatient for 4 days prior to admission. Patient remained afebrile. Labs normalized day 3 of admission. She felt a lot better clinically however on CAT scan there was a questionable abscess versus fluid collection in the pelvis versus ovary seen. Transvaginal ultrasound was ordered for which patient declined. Transabdominal ultrasound did show a possible abscess but was told by radiology that it was too small to try to aspirate at this time. CAT scan was repeated in 48 hours. Repeat CAT scan showed loculated ascites versus abscess. Aspiration of abscess was ordered. Discussed case with interventional radiology. They compared all her scans and stated that at first it was slightly larger than 4 cm but now it is reducing in size with antibiotics. The free fluid in the pelvis is also resolved by this point. The size of the abscess now is 3.2 cm x 2.8 cm. Shared decision-making was done with the patient's and the patient. Studies have shown that for smaller abscesses less than 4 cm antibiotic therapy alone and percutaneous drainage have similar success rates morbidity and mortality. Had a long discussion with the patient and her and it was decided to try a course of oral antibiotics since patient is clinically better. I will prescribe her Augmentin 875 3 times daily for another 12 days. We did discuss that if patient develops a fever abdominal pain diarrhea nausea vomiting or any other signs and symptoms that she is concerned about she should come back to the ER. We will also give her a follow-up appointment with general surgery as an outpatient. I will also give her a repeat CAT scan in 1 week to follow-up on this abscess. Patient and her demonstrated understanding and agreed to the above plan. Patient will follow up with her PCP as well. Patient was discharged home in a stable condition. She was tolerating diet, no longer having nausea vomiting and all her labs have normalized. Abdominal pain is also resolved. Physical Exam Narrative: General: Anxious female laying in bed appearing comfortable, HEENT: NC/AT, EOMI Lungs: CTA B/L, no w/r/c Heart: S1, S2 normal Abdomen: soft,non tender, non distended, BS + 4Q normoactive Extremities: No edema/cyanosis Behavior: Appropriate and cooperative Discharge Data Studies Completed and Pending Completed Studies During Hospitalization Category Date Time Status CT abdomen pelvis w con* [id number] Routine Cat Scan 03/30/22 15:[address] abdomen pelvis w con* [id number] Urgent Cat Scan 03/27/22 13:18 Completed US pelvic complete* [id number] Urgent Ultrasound 03/28/22 11:05 Completed Pending at discharge Category Date Time Status IR drainage by cath [id number] Routine Exams 03/31/22 17:40 Ordered Blood Culture Stat Lab 03/28/22 19:35 Results Helicobacter Pylori AG Stool Stat Lab 03/28/22 20:20 Received Radiology Impressions Pelvis Ultrasound 03/28/22 11:05 IMPRESSION: Loculated pelvic fluid as seen on CT. Infection is a possibility. The ovaries are not visible by transabdominal ultrasound. ADDENDUM: 03/28/22 1834 THIS REPORT CONTAINS FINDINGS THAT MAY BE CRITICAL TO PATIENT CARE. The findings were verbally communicated via telephone conference with Magy Perrin at 6:32 PM [facility] on 03/28/2022. The findings were acknowledged and understood. Abdomen/Pelvis CT 03/30/22 15:00 IMPRESSION: 1. Improved sigmoid diverticulitis and colitis. 2. Stable 3.7 cm oval cystic lesion in the anterior left pelvis. This has no peripheral enhancement and most likely represents a seroma or loculated ascites. An abscess is considered less likely. 3. Stable chronic nonenhancing fluid collection in the posterior left pelvis, most likely loculated ascites. COMMENTS: Consistent with the [employer] [place] [employer]'s Incidental Findings Committee white paper (J Am Marlen Radiol 2018): Any incidental renal lesion less than 1 cm or classified as too small to characterize, or any incidental cystic renal lesion characterized as simple-appearing, is likely benign. No follow-up imaging is recommended for these lesions per consensus recommendations based on imaging criteria. Laboratory Results WBC 7.7 10^3/uL (4.0-10.0) 03/31/22 04:57 RBC 4.41 10^6/uL (4.1-5.3) 03/31/22 04:57 Hgb 12.6 g/dL (11.5-15.3) 03/31/22 04:57 Hct 40.9 % (37.0-47.0) 03/31/22 04:57 MCV 92.7 fl (81-99) 03/31/22 04:57 MCH 28.6 pg (28.0-34.0) 03/31/22 04:57 MCHC 30.8 g/dL (30.0-36.0) 03/31/22 04:57 RDW 12.1 % (12.1-15.1) 03/31/22 04:57 Plt Count 285 10^3/cmm (130-400) 03/31/22 04:57 MPV 10.4 fL (7.4-10.4) 03/31/22 04:57 Neut % (Auto) 47.0 % 03/31/22 04:57 Lymph % (Auto) 42.2 % 03/31/22 04:57 [place] % (Auto) 7.4 % 03/31/22 04:57 Eos % (Auto) 2.5 % 03/31/22 04:57 Baso % (Auto) 0.6 % 03/31/22 04:57 Neut # (Auto) 3.64 10^3/uL (1.8-7.7) 03/31/22 04:57 Lymph # (Auto) 3.3 10^3/uL (0.8-4.8) 03/31/22 04:57 [place] # (Auto) 0.6 10^3/uL (0.2-0.9) 03/31/22 04:57 Eos # (Auto) 0.2 10^3/uL (0.0-0.8) 03/31/22 04:57 Baso # (Auto) 0.1 10^3/uL (0.0-0.1) 03/31/22 04:57 Nucleated RBC % (auto) 0 % 03/31/22 04:57 Nucleated RBCs # 0.0 /100WBC 03/31/22 04:57 Sodium 140 mmol/L (136-145) 03/31/22 04:57 Potassium 3.6 mmol/L (3.5-5.1) 03/31/22 04:57 Chloride 109 mmol/L (98-107) H 03/31/22 04:57 Carbon Dioxide 20 mmol/L (22-29) L 03/31/22 04:57 Anion Gap 14.6 (5-19) 03/31/22 04:57 BUN 6 mg/dL (8-23) L 03/31/22 04:57 Creatinine 0.6 mg/dL (0.5-0.9) 03/31/22 04:57 GFR Calculation 102.0 mL/min (90-130) 03/31/22 04:57 Glucose 88 mg/dL (65-115) 03/31/22 04:57 Calculated Osmolality 287 mOsm/kg (285-295) 03/31/22 04:57 Lactic Acid 1.0 mmol/L (0.5-2.2) 03/27/22 15:05 Calcium 9.1 mg/dL (8.5-10.5) 03/31/22 04:57 Ionized Calcium Seth 1.1 mmol/L (1.1-1.4) 03/27/22 15:08 Magnesium 2.0 mg/dL (1.7-2.3) 03/31/22 04:57 Total Bilirubin 0.4 mg/dL (0.15-1.2) 03/28/22 04:15 AST 29 U/L (0-32) 03/28/22 04:15 ALT 17 U/L (0-33) 03/28/22 04:15 Alkaline Phosphatase 120 IU/L (35-105) H 03/28/22 04:15 Total Protein 5.6 g/dL (6.6-8.7) L 03/28/22 04:15 Albumin 3.2 g/dL (3.5-5.2) L 03/28/22 04:15 Globulin 2.4 g/dL (1.3-4.6) 03/28/22 04:15 Lipase 12 U/L (13-60) L 03/27/22 13:27 Procalcitonin 0.09 ng/mL (0-0.5) 03/28/22 04:15 Urine Color Yellow (Yellow) 03/27/22 13:09 Urine Appearance Clear (CLEAR) 03/27/22 13:09 Urine pH 8 (5-7) H 03/27/22 13:09 Ur Specific [place] 1.010 (1.005-1.030) 03/27/22 13:09 Urine Protein Neg (Negative) 03/27/22 13:09 Urine Glucose (UA) Norm (Normal) 03/27/22 13:09 Urine Ketones 2+ (Negative) H 03/27/22 13:09 Urine Blood Neg (Negative) 03/27/22 13:09 Urine Nitrate Negative (Negative) 03/27/22 13:09 Urine Bilirubin Neg (Negative) 03/27/22 13:09 Prot Sulfosalicylic Acd Negative (Negative) 03/27/22 13:09 Urine Urobilinogen Norm mg/dL (Negative) 03/27/22 13:09 Ur Leukocyte Esterase 1+ (Negative) H 03/27/22 13:09 Urine RBC None /hpf (0-2) 03/27/22 13:09 Urine WBC 0-4 /hpf (0-5) H 03/27/22 13:09 Ur Squamous Epith Cells 0-4 /hpf (0-5) H 03/27/22 13:09 Amorphous Sediment Not Reportable 03/27/22 13:09 Urine Bacteria 1+ /hpf (NONE) H 03/27/22 13:09 Vitals Last Vital Signs Temp 97.5 F L 03/31/22 08:00 Pulse 61 03/31/22 08:00 Resp 16 03/31/22 08:00 BP 159/67 03/31/22 08:00 Pulse Ox 97 03/31/22 08:00 Discharge Plan Discharge Patient Disposition: Home Condition: Stable Prescriptions: New amoxicillin-pot clavulanate 875-125 mg tablet 1 tab PO Q8H 12 Days Qty: 36 0RF Continued albuterol sulfate [Proventil HFA] 90 mcg/actuation HFA aerosol inhaler 2 puff inhalation Q6H PRN (Reason: ASTHMA) Qty: 8.5 6RF montelukast 10 mg tablet 10 mg PO DAILY 90 Days Qty: 90 2RF milk thistle 175 mg tablet 175 mg PO BID 0RF Rx Instructions: give with meal/snack fluticasone propionate [Flonase Allergy Relief] 50 mcg/actuation spray,suspension 1 spray intranasal DAILY PRN (Reason: Allergic Symptoms) 0RF Rx Instructions: administer into each nostril hydroxyzine HCl 25 mg tablet 25 mg PO BID 0RF PreserVision AREDS [id number] Capsule 1 cap PO BID 0RF Restasis 0.05 % Dropperette 1 drp OPHTHALMIC (EYE) Q12H 0RF guaifenesin [Mucinex] 600 mg Tablet Extended Release 12hr 600 mg PO BID 0RF omeprazole 20 mg Tablet,Delayed Release (Dr/Ec) 20 mg PO DAILY 0RF ondansetron HCl 4 mg tablet 4 mg PO Q6H PRN (Reason: Nausea) 0RF Held coenzyme Q10 [Co Q-10] 100 mg capsule 100 mg PO DAILY 0RF Hold Instructions: see primary care before resuming coconut oil 1,000 mg capsule 2,000 mg PO DAILY 0RF Hold Instructions: see primary care before resuming AZO D-Mannose 500 mg capsule 1,000 mg PO DAILY 0RF Hold Instructions: see primary care before resuming susjjwb-kmbb-cjedl-oreg-capryl 100 mg-150 mg- 50 mg-150 mg capsule 100 cap PO DAILY 0RF Hold Instructions: see primary care before resuming glucosamine sulfate [Glucosamine] 500 mg Tablet 500 mg PO DAILY 0RF Hold Instructions: see primary care before resuming Discontinued ciprofloxacin HCl 500 mg tablet 500 mg PO BID 7 Days Qty: 14 0RF metronidazole 500 mg tablet 500 mg PO Q12H 7 Days Qty: 14 0RF Discharge Orders: Discharge Order (Routine); Ordered 03/31/22 Ordered By: Magy Perrin Other Ambulatory Orders: CT abdomen pelvis w con* [id number] (Routine) Timeframe: 1 Week Facility: [facility] - Location: [facility] Ordered By: Magy Perrin Referrals: Alcides Bruner MD [Physician] - 1 week Leighann Silva MD [Primary Care Provider] - 4-7 days Discharge Diet: GI Soft Discharge Activity: Resume usual activity and Increase activity as tolerated Patient Instructions: Opioid Safety Activity Restrictions/Additional Instructions: If you develop any signs and symptoms including but not limited to fever, abdominal pain, nausea, vomiting please come back to the ER. He will have a repeat CAT scan to assess for abscess size in 1 week. Please complete all your antibiotics until finished. Please follow-up with your primary care doctor within 4 to 7 days. Discharge Attestations Time Spent in Discharge Care*: greater than 30 min Quality Metrics Clinical Quality Measures [ No reported AMI, CVA or VTE this stay] Coding Level of Care Code Acute Chg FW DC note Diagnoses Diarrhea R19.7 Diverticulitis K57.92 Dehydration E86.0 Nausea and vomiting R11.2 Leukocytosis D72.829 Hypokalemia E87.6 Hypomagnesemia E83.42 Intra-abdominal fluid R18.[address] of the abdomen R93.5 Endometrial hyperplasia, unspecified N85.00 Nausea R11.0 Abdominal pain R10.9
[2022-03-31 11:44] VITALS: BP 122/72; PULSE 62; RESP 14; TEMP 36.8; O2SAT 98
[2022-03-31 16:00] VITALS: BP 134/83; PULSE 71; RESP 16; TEMP 36.6; O2SAT 97
[2022-03-31 17:42] VITALS: BP 134/83; PULSE 71; RESP 16; TEMP 36.6; O2SAT 97
== END 2022-03-31 17:46 | disposition home or self-care (01) | DRG 392 ==
LOC: ER 16:40 → MEDSURG 20:11
PROVIDERS: Emergency Medicine; Admitting Provider Internal Medicine; Emergency Provider Emergency Medicine; PCP Family Medicine; Visit Provider Internal Medicine
DX: K57.20 Diverticulitis of large intestine with perforation and abscess without bleeding (principal); K52.9 Noninfective gastroenteritis and colitis, unspecified; J45.909 Unspecified asthma, uncomplicated; Z86.16 Personal history of COVID-19; I10 Essential (primary) hypertension; Z98.1 Arthrodesis status; E86.0 Dehydration; E87.6 Hypokalemia; E83.42 Hypomagnesemia; K76.0 Fatty (change of) liver, not elsewhere classified; N85.00 Endometrial hyperplasia, unspecified
CPT/HCPCS: 36415; 51798; 74177; 76856; 80048; 80053; 81001; 82274; 82330; 83605; 83630; 83690; 83735; 84145; 85025; 87040; 87086; 87338; 87493; 87506; 93005; 94664; 96372; C9113; J0744; J1650; J2405; J2543; J3010; J3475; J3480; J7030; Q9967; S0030

== ENCOUNTER 2022-04-11 15:52 | Observation (INO) | payer BC, SELFPAY ==
[2022-04-11] VITALS (11 sets, daily range): BP systolic 138–189; BP diastolic 76–134; PULSE 52–78; RESP 16–18; TEMP 37.2; O2SAT 95–99; BMI 37.1; BMI 36.6
--- NOTE | 2022-04-11 18:25 | W.ED.NAVMDI ---
HPI - Nausea/Vomiting/Diarrhea General: Chief complaint: Nausea/Vomiting/Diarrhea Stated complaint: N/V/D Abd Pains Time Seen by Provider: 04/11/22 18:25 History of Present Illness: Ms. Jacome is a 61-year-old lady with significant recent past medical history of diverticulitis with perforation presenting to the emergency department due to nausea, vomiting, and worsening abdominal pain. She was admitted on 03/27 and at that time was diagnosed with diverticulitis. She was managed with antibiotics in the outpatient setting and CT during hospitalization apparently revealed improvement in abscess with just IV antibiotics. She was discharged home on oral antibiotics end had been following strict diet precautions as well as being compliant with her medications. Approximately 3 days ago had generalized abdominal aching and pain. Additionally for the past 2 days she has had constipation. She presented to PCP this morning with nausea and vomiting, she tried magnesium citrate however vomited that up. She did have small amount of stool output. She denies other source of infection. Overall course of symptoms has worsened. Intensity is moderate. No other specific changes in health, exacerbating, or alleviating factors identified. Onset (ago): day(s) Description of vomiting: watery Associated nausea: Yes Associated abdominal pain: Yes Location of pain: Diffuse Severity: moderate Quality: aching and sharp Exacerbating factors: eating Associated symtoms: Reports nausea Review of Systems General: Reports: 10 or more systems reviewed and unremarkable except in HPI and below GI: Reports: nausea PFSH ED PFSH: Medical History Asthma COVID-19 Diverticulosis Eczema Hypertension Pseudotumor cerebri Seasonal allergies Surgical History History of cholecystectomy History of fusion of cervical spine Status post colonoscopy (01/07/22) diverticulosis -repeat in 10years Family History Father Liver failure Stroke Cancer skin Hypertension Mother CHF (congestive heart failure) Hypertension Grandfather Cancer Maternal--lung Denies family history of Diabetes Clotting disorder Chronic kidney disease (CKD) Bleeding disorder Thyroid disease Social History Smoking and tobacco status: never smoked Physical Exam Const: COMMON NORMALS: alert GENERAL APPEARANCE: cooperative and well developed HENMT: COMMON NORMALS: normocephalic and atraumatic HEAD & SCALP: normocephalic and atraumatic Eye: COMMON NORMALS: conjunctivae normal CONJUNCTIVA: Yes conjunctivae normal SCLERA: sclerae normal Neck/C-Spine: COMMON NORMALS: supple GENERAL: Yes trachea midline Resp: COMMON NORMALS: clear to auscultation bilaterally EFFORT & INSPECTION: Yes able to speak in complete sentences AUSCULTATION: clear to auscultation bilaterally Cardio: COMMON NORMALS: regular rate and regular rhythm RATE: regular rate RHYTHM: regular rhythm GI: COMMON NORMALS: Soft to palpation PALPATION: Yes Soft to palpation, Yes Tenderness to palpation present (GI), No Guarding due to palpation present (GI) and No Rigid due to palpation PERCUSSION: normal to percussion Extremity: GENERAL: Yes normal exam except as noted and No edema Neuro: COMMON NORMALS: moves all extremities SENSORIUM/ORIENTATION: Yes alert and No Orientation impaired Psych: COMMON NORMALS: mental status grossly normal and Normal thought process present THOUGHT PROCESS: Normal thought process present Skin: NARRATIVE SKIN EXAM: Skin bruise noted on right lower abdominal wall, likely from Lovenox Course ED course: - Patient was seen and evaluated by me at bedside - Patient placed on cardiac monitors, IV access obtained - Initial evaluation notable for exam as above. Moderate abdominal tenderness to palpation, no evidence of acute surgical abdomen. - Labs personally interpreted by me -Analgesia and antiemetic ordered - Labs notable for mild leukocytosis, metabolic panel without acute derangement requiring intervention. - Imaging notable for worsening sigmoid portion of colitis - Upon serial reexamination after treatment the patient was mildly improved - Based on patient history, evaluation, and testing as interpreted the most likely cause of the patient's condition is colitis with failure of outpatient therapy. - The results of ED evaluation were discussed with the patient including plan for admission due to requirement for level of care not available if discharged to prevent significant worsening/deterioration. - Admitting service was contacted and Dr Tapia with the hospitalist service agreed to admit the patient - Patient was admitted without further deterioration or significant events. Note: Click bubbles or prepopulated soto in note writing are used for assistance with data collection and billing and are inherently more limited than narrative and other text portions of this note. Please use narrative for additional clinical history and defer to narrative/free test for any case of contradictory information. If information appears in only free text or click bubble it should be considered present or absent as reported. Please contact note flex o writer operator for clarifications of clinical information or contradictory information. MDM is a brief summary, contradictory or erroneous seeming information should be clarified and full note should be reviewed. Vital Signs: Vital signs: Vital Signs Temperature 98.1 F 04/12/22 07:34 Pulse Rate 72 04/12/22 07:34 Respiratory Rate 17 04/12/22 07:34 Blood Pressure 142/80 04/12/22 07:34 Pulse Oximetry 94 04/12/22 07:34 MDM - Nausea/Vomiting/Diarrhea Medical Decision Making 61-year-old lady with history of diverticulitis currently on antibiotics presenting due to worsening abdominal pain with nausea and vomiting and constipation. She presented at the start of the month after failure of Cipro and Flagyl at home requiring admission for perforated diverticulitis. She was discharged on a Augmentin and had been improving until approximately 3 days ago. Moderate abdominal tenderness to palpation. CT with worsening sigmoid colitis. Admitted for failure of outpatient management. Medical Records I reviewed the patient's medical records. Lab Data I reviewed the patient's lab results. : 04/12/22 04:20 04/11/22 19:15 Radiology Impressions Abdomen/Pelvis CT 04/11/22 19:53 IMPRESSION: 1. Progressive inflammation of the sigmoid colon since 03/30/2022. 2. Stable small volume mildly loculated pelvic free fluid. 3. Multilocular unencapsulated fluid collection superior to the bladder is similar in overall size but changed morphologically since 03/30/2022. This could represent loculated ascites. Continued follow-up would be required to unequivocally exclude abscess. COMMENTS: Consistent with the [employer] [employer]'s Incidental Findings Committee white paper (J Am Marlen Radiol 2018): Any incidental renal lesion less than 1 cm or classified as too small to characterize, or any incidental cystic renal lesion characterized as simple-appearing, is likely benign. No follow-up imaging is recommended for these lesions per consensus recommendations based on imaging criteria. Laboratory Results WBC 10.4 10^3/uL (4.0-10.0) H 04/11/22 19:15 RBC 5.04 10^6/uL (4.1-5.3) 04/11/22 19:15 Hgb 14.7 g/dL (11.5-15.3) 04/11/22 19:15 Hct 44.0 % (37.0-47.0) 04/11/22 19:15 MCV 87.3 fl (81-99) 04/11/22 19:15 MCH 29.2 pg (28.0-34.0) 04/11/22 19:15 MCHC 33.4 g/dL (30.0-36.0) 04/11/22 19:15 RDW 12.3 % (12.1-15.1) 04/11/22 19:15 Plt Count 356 10^3/cmm (130-400) 04/11/22 19:15 MPV 10.5 fL (7.4-10.4) H 04/11/22 19:15 Neut % (Auto) 64.5 % 04/11/22 19:15 Lymph % (Auto) 30.1 % 04/11/22 19:15 [place] % (Auto) 4.8 % 04/11/22 19:15 Eos % (Auto) 0.1 % 04/11/22 19:15 Baso % (Auto) 0.3 % 04/11/22 19:15 Neut # (Auto) 6.72 10^3/uL (1.8-7.7) 04/11/22 19:15 Lymph # (Auto) 3.1 10^3/uL (0.8-4.8) 04/11/22 19:15 [place] # (Auto) 0.5 10^3/uL (0.2-0.9) 04/11/22 19:15 Eos # (Auto) 0.0 10^3/uL (0.0-0.8) 04/11/22 19:15 Baso # (Auto) 0.0 10^3/uL (0.0-0.1) 04/11/22 19:15 Nucleated RBC % (auto) 0 % 04/11/22 19:15 Nucleated RBCs # 0.0 /100WBC 04/11/22 19:15 Sodium 140 mmol/L (136-145) 04/11/22 19:15 Potassium 3.8 mmol/L (3.5-5.1) 04/11/22 19:15 Chloride 102 mmol/L (98-107) 04/11/22 19:15 Carbon Dioxide 24 mmol/L (22-29) 04/11/22 19:15 Anion Gap 17.8 (5-19) 04/11/22 19:15 BUN 7 mg/dL (8-23) L 04/11/22 19:15 Creatinine 0.5 mg/dL (0.5-0.9) 04/11/22 19:15 GFR Calculation 125.9 mL/min (90-130) 04/11/22 19:15 Glucose 102 mg/dL (65-115) 04/11/22 19:15 Calculated Osmolality 288 mOsm/kg (285-295) 04/11/22 19:15 Lactate 0.9 mmol/L (0.5-2.2) 04/11/22 19:25 Calcium 10.0 mg/dL (8.5-10.5) 04/11/22 19:15 Total Bilirubin 0.6 mg/dL (0.15-1.2) 04/11/22 19:15 AST 15 U/L (0-32) 04/11/22 19:15 ALT 15 U/L (0-33) 04/11/22 19:15 Alkaline Phosphatase 127 IU/L (35-105) H 04/11/22 19:15 Total Protein 8.1 g/dL (6.6-8.7) 04/11/22 19:15 Albumin 4.7 g/dL (3.5-5.2) 04/11/22 19:15 Globulin 3.4 g/dL (1.3-4.6) 04/11/22 19:15 Lipase 18 U/L (13-60) 04/11/22 19:15 Urine Color Yellow (Yellow) 04/11/22 20:04 Urine Appearance Clear (CLEAR) 04/11/22 20:04 Urine pH 8 (5-7) H 04/11/22 20:04 Ur Specific [place] 1.010 (1.005-1.030) 04/11/22 20:04 Urine Protein Neg (Negative) 04/11/22 20:04 Urine Glucose (UA) Norm (Normal) 04/11/22 20:04 Urine Ketones 1+ (Negative) H 04/11/22 20:04 Urine Blood Neg (Negative) 04/11/22 20:04 Urine Nitrate Negative (Negative) 04/11/22 20:04 Urine Bilirubin Neg (Negative) 04/11/22 20:04 Prot Sulfosalicylic Acd Negative (Negative) 04/11/22 20:04 Urine Urobilinogen Norm mg/dL (Negative) 04/11/22 20:04 Ur Leukocyte Esterase Negative (Negative) 04/11/22 20:04 Discharge Plan Discharge Patient Disposition: Placed in Observation Admit Provider: Jared Tapia Clinical Impression: Colitis, Abdominal pain, Nausea & vomiting Coding Level of Care Code ED Chief Engineer Production for Chg Fwd Exam Comprehensive
[2022-04-11] MEDS: ondansetron 2 mg/ML SDV 2 mL 4 MG IVP (19:31)
[2022-04-11 19:34] LABS: Basophils % 0.3 %; Eosinophils % 0.1 %; Hemoglobin 14.7 g/dL (11.5-15.3); Lymphocytes # 3.1 10^3/uL (0.8-4.8); Lymphocytes % 30.1 %; Mean Corpuscular HGB Conc 33.4 g/dL (30.0-36.0); Mean Corpuscular Hemoglobin 29.2 pg (28.0-34.0); Mean Corpuscular Volume 87.3 fl (81-99); Mean Platelet Volume 10.5 fL (7.4-10.4); Monocytes # 0.5 10^3/uL (0.2-0.9); Monocytes % 4.8 %; Neutrophils # 6.72 10^3/uL (1.8-7.7); Neutrophils % 64.5 %; Nucleated Red Blood Cells % 0 %; Platelet Count 356 10^3/cmm (130-400); Red Blood Count 5.04 10^6/uL (4.1-5.3); Red Cell Distribution Width 12.3 % (12.1-15.1); White Blood Count 10.4 10^3/uL (4.0-10.0)
--- NOTE | 2022-04-11 19:53 | CTR_ITS ---
PROCEDURE INFORMATION: Exam: CT Abdomen And Pelvis With Contrast Exam date and time: 04/11/2022 8:17 PM Age: 61 years old Clinical indication: Abdominal pain; Additional info: HX diverticulitis w abscess, worsening pain n/v TECHNIQUE: Imaging protocol: Computed tomography of the abdomen and pelvis with contrast. Radiation optimization: All CT scans at this facility use at least one of these dose optimization techniques: automated exposure control; mA and/or kV adjustment per patient size (includes targeted exams where dose is matched to clinical indication); or iterative reconstruction. Contrast material: OMNIPAQUE 300; Contrast volume: 90 ml; Contrast route: INTRAVENOUS (IV); COMPARISON: CT abdomen pelvis w con* [id number] 03/30/2022 4:42 PM RADIATION DOSE METRICS: Total DLP (mGy-cm): 1917.02 FINDINGS: Lungs: Lung bases are clear. Liver: The liver is normal. Gallbladder and bile ducts: The gallbladder is absent. There is no intrahepatic or extrahepatic bile duct dilation. Pancreas: The pancreas is unremarkable. Spleen: The spleen is unremarkable. The portal, splenic and superior mesenteric veins are patent. Adrenal glands: The adrenal glands are unremarkable. Kidneys and ureters: There are simple cysts in the left kidney. There is a nonobstructive stone in the left kidney. There is no hydronephrosis or ureteral dilation. The right kidney and ureter are unremarkable. Stomach and bowel: Mild diverticulosis of the distal descending and sigmoid colon. Mildly progressive long segment colonic wall thickening and pericolonic edema in the proximal sigmoid. Small volume adjacent free fluid is stable. There is a multilocular un encapsulate fluid collection anterior to the sigmoid colon superior to the bladder. The morphology of the lesion has changed since 03/30/2022. The largest locule is decreased in size. There are 2 additional locules now visible. There is no peripheral enhancement. The stomach is decompressed, preventing meaningful evaluation of wall thickness. The small bowel is nondilated. Appendix: The appendix is normal. Intraperitoneal space: There is no free air or significant intraperitoneal free fluid. Vasculature: There is mild aortic atherosclerotic disease. Lymph nodes: There is no lymphadenopathy in the retroperitoneum, mesentery, pelvis or inguinal regions. Urinary bladder: The urinary bladder is decompressed, preventing meaningful evaluation of wall thickness. Reproductive: The uterus is unremarkable. There is no adnexal mass or large cyst. Bones/joints: There is mild degenerative disease in the lower lumbar spine. The pelvis and hips are unremarkable. Soft tissues: There is a small fat containing umbilical hernia. CT/CT abdomen pelvis w con* [id number] IMPRESSION: 1. Progressive inflammation of the sigmoid colon since 03/30/2022. 2. Stable small volume mildly loculated pelvic free fluid. 3. Multilocular unencapsulated fluid collection superior to the bladder is similar in overall size but changed morphologically since 03/30/2022. This could represent loculated ascites. Continued follow-up would be required to unequivocally exclude abscess. COMMENTS: Consistent with the [employer]'s Incidental Findings Committee white paper (J Am Marlen Radiol 2018): Any incidental renal lesion less than 1 cm or classified as too small to characterize, or any incidental cystic renal lesion characterized as simple-appearing, is likely benign. No follow-up imaging is recommended for these lesions per consensus recommendations based on imaging criteria.
[2022-04-11 20:02] LABS: Alanine Aminotransferase 15 U/L (0-33); Albumin Level 4.7 g/dL (3.5-5.2); Alkaline Phosphatase 127 IU/L (35-105); Anion Gap 17.8 (5-19); Aspartate Amino Transferase 15 U/L (0-32); Blood Urea Nitrogen 7 mg/dL (8-23); Carbon Dioxide 24 mmol/L (22-29); Chloride 102 mmol/L (98-107); Globulin 3.4 g/dL (1.3-4.6); Glomerular Filtration Rate 125.9 mL/min (90-130); Glucose 102 mg/dL (65-115); Lipase 18 U/L (13-60); Osmolality Calculated 288 mOsm/kg (285-295); Potassium 3.8 mmol/L (3.5-5.1); Sodium 140 mmol/L (136-145); Total Bilirubin 0.6 mg/dL (0.15-1.2); Total Protein 8.1 g/dL (6.6-8.7)
[2022-04-11 20:06] LABS: Lactate (Lactic Acid level) 0.9 mmol/L (0.5-2.2)
[2022-04-11 20:06] LABS: Add Urine Microscopic? NO; Charge for UA Resulting for Rev
[2022-04-11 20:11] LABS: Urine Appearance Clear (CLEAR); Urine Color Yellow (Yellow); pH Urine 8 (5-7)
[2022-04-11 20:12] LABS: Bilirubin Urine Neg (Negative); Blood Urine Neg (Negative); Glucose Urine UA Norm (Normal); Ketones Urine 1+ (Negative); Leukocyte Esterase Urine Negative (Negative); Nitrate Urine Negative (Negative); Protein Urine Neg (Negative); Sulfosalicylic Acid Urine Negative (Negative); Urobilinogen Urine Norm (Negative)
[2022-04-11] MEDS: iohexol 300 mg/mL 100 mL Btl IV (20:12)
[2022-04-11] MEDS: sodium chloride 0.9% 1,000 ML 999 ML IV (21:21)
[2022-04-11] MEDS: piperacillin-tazobactam 4.5 GM in sodium chloride 0.9% (plus) 50 ML IV (22:46)
--- NOTE | 2022-04-11 23:03 | PM.HP ---
Providers/Chief Complaint Admitting Physician: Jared Tapia DO Primary Care Provider: Leighann Silva MD Chief Complaint: N/V/D Abd Pains History of Present Illness the patient is a 61-year-old female who presented to [facility] abdominal pain. The patient Cates that she was hospitalized prior to 6. On April 01 she was discharged with Augmentin which she has been taking for approximate 1-1/2 weeks. She states that she is compliant with the medication. She describes the abdominal pain as being in the left lower quadrant which radiates diffusely and has been intermittent since the time of onset. She describes as a squeezing. She is unable to state whether by mouth intake makes any difference in the pain. She states that her last bowel movement was on April 11, 2000 my queue it was loose due to taking magnesium citrate. She denies melena or hematochezia. She admits to nausea and vomiting. She denies fever or rigors, cough, wheeze. She presents for further evaluation Review of Systems General: Reports: 10 or more systems reviewed and unremarkable except in HPI and below Const: Reports: chills Medications/Allergies Home Medications Medication Instructions Recorded Confirmed Last Taken Type albuterol sulfate 90 mcg/actuation 2 puff INHALATION Q6H PRN #8.5 g 12/10/21 04/11/22 01/18/22 11:00 Rx aerosol inhaler (Proventil HFA) montelukast 10 mg tablet 10 mg PO DAILY 90 Days #90 tab 12/10/21 04/11/22 04/10/22 Rx cyclosporine 0.05 % eye drops in a 1 drp OPHTHALMIC (EYE) Q12H 01/05/22 04/11/22 04/11/22 History dropperette (Restasis) guaifenesin 600 mg tablet, 600 mg PO BID 01/05/22 04/11/22 04/11/22 History extended release 12 hr (Mucinex) omeprazole 20 mg tablet,delayed 20 mg PO DAILY 01/05/22 04/11/22 04/10/22 History release coconut oil 1,000 mg capsule 2,000 mg PO DAILY 01/10/22 04/11/22 03/25/22 History coenzyme Q10 100 mg capsule (Co 100 mg PO DAILY 01/10/22 04/11/22 03/25/22 History Q-10) d-mannose 500 mg capsule (AZO 1,000 mg PO DAILY 01/10/22 04/11/22 03/25/22 History D-Mannose) fluticasone propionate 50 1 spray INTRANASAL DAILY PRN g 01/10/22 04/11/22 04/11/22 History mcg/actuation nasal spray,suspension (Flonase Allergy Relief) milk thistle 175 mg tablet 175 mg PO BID 01/10/22 04/11/22 04/11/22 History glucosamine sulfate 500 mg tablet 500 mg PO DAILY 01/17/22 04/11/22 03/25/22 History (Glucosamine) hydroxyzine HCl 25 mg tablet 25 mg PO BID 01/17/22 04/11/22 04/10/22 History vitamins A,C,G-kxzg-fkxuat 14,320 1 cap PO BID 01/17/22 04/11/22 04/11/22 History unit-226 mg-200 unit capsule (PreserVision AREDS) ondansetron HCl 4 mg tablet 4 mg PO Q6H PRN 03/27/22 04/11/22 04/10/22 History amoxicillin 875 mg-potassium 1 tab PO BID #14 tab 04/11/22 04/11/22 04/11/22 Rx clavulanate 125 mg tablet linaclotide 145 mcg capsule 145 mcg PO QAM #30 cap 04/11/22 04/11/22 Unknown Rx (Linzess) Allergies Allergy/AdvReac Type Severity Reaction Status Date / Time erythromycin base Allergy ADR-Nausea Verified 04/11/22 08:56 metronidazole [From Flagyl] Allergy ADR-Vomitin Verified 04/11/22 19:28 g morphine Allergy ADR-Nausea Verified 04/11/22 08:56 diazepam [From Valium] AdvReac skin crawl Verified 04/11/22 08:56 PFSH Acute PFSH: Medical History Asthma COVID-19 Diverticulosis Eczema Hypertension Pseudotumor cerebri Seasonal allergies Surgical History History of cholecystectomy History of fusion of cervical spine Status post colonoscopy (01/07/22) diverticulosis -repeat in 10years Family History Father Liver failure Stroke Cancer skin Hypertension Mother CHF (congestive heart failure) Hypertension Grandfather Cancer Maternal--lung Denies family history of Diabetes Clotting disorder Chronic kidney disease (CKD) Bleeding disorder Thyroid disease Social History Smoking and tobacco status: never smoked Vitals/I&O/Wt Last Vital Signs Temp 98.9 F 04/11/22 16:50 Pulse 64 04/11/22 23:01 Resp 16 04/11/22 23:01 BP 166/81 04/11/22 23:01 Pulse Ox 95 04/11/22 23:01 04/11/22 04/11/22 04/12/22 14:59 22:59 06:59 Intake Total 1000 / 1000 Balance 1000 / 1000 Weight last 48 hrs Weight 92.079 kg Physical Exam Narrative: General: -Alert -No acute distress -No dyspnea -No tachypnea Head: -Atraumatic -Normocephalic Eyes: -Pupils equally round and reactive to light and accommodation -Extraocular muscles intact Neurological: -Cranial nerves II-XII intact Neck: -No jugular venous distention -No thyromegaly -No cervical lymphadenopathy Heart: -Regular rate -Regular rhythm -No murmurs -No gallops -No rubs Lungs: -No wheeze -No rhonchi -No rales ? Abdomen: -Normal bowel sounds in all four quadrants -No rebound -No guarding -No tenderness Extremities: -2/4 pulse in all four extremities -No clubbing -No cyanosis -No edema -No calf tenderness present bilaterally -Negative Brooks?s sign bilaterally Musculoskeletal: -5/5 bilateral upper extremity strength -5/5 bilateral lower extremity strength -Sensorium of bilateral upper extremities are equal and intact -Sensorium of bilateral lower extremities are equal and intact ? Additional Details / Additional Findings / Exceptions / Miscellaneous: Data : 04/11/22 19:15 04/11/22 19:15 A&P Assessment and plan (1) Colitis: Status: Acute Plan sigmoid colitis, query diverticulitis. Patient allergic to Flagyl. Ciprofloxacin 400 Mill grams IV every 12 hours plus Clinimix and 6 1 Mill grams IV every 8 hours. Currently pending: Stool C. difficile, stool WBC, stool culture, stool ova and parasites Query loculated ascites. We may consider surgical consult. Per previous hospitalization documentation, at that time the loculation was too small for access Constipation Asthma Diverticulosis Chronic dry eye Hepatic steatosis IBS Seasonal allergies GERD Hypertension Obesity. The patient becomes regarding lifestyle medication Eczema Pseudotumor cerebri DVT Proflex is. Bilateral SCD Attestations Medical Necessity Statement*: anticipate length of stay is greater than 2 midnights for treatment of her colitis Coding Level of Care Code Acute Clinical Assistant Professor for g Fwd Diagnoses Colitis K52.9
[2022-04-12] VITALS (7 sets, daily range): BP systolic 126–156; BP diastolic 65–82; PULSE 62–80; RESP 17–80; TEMP 36.4–36.9; O2SAT 94–98
[2022-04-12] MEDS: ciprofloxacin 400 MG/200 ML PREMIX 200 MG IV (00:12)
[2022-04-12] MEDS: clindamycin 600 MG/50 ML PREMIX 100 MG IV ×2 (01:21→08:19)
[2022-04-12] MEDS: acetaminophen 325 mg Tablet 650 MG PO ×2 (04:29→21:30)
[2022-04-12 05:05] LABS: Basophils % 0.5 %; Eosinophils # 0.1 10^3/uL (0.0-0.8); Eosinophils % 0.9 %; Hematocrit 40.1 % (37.0-47.0); Hemoglobin 12.6 g/dL (11.5-15.3); Lymphocytes # 3.3 10^3/uL (0.8-4.8); Mean Corpuscular HGB Conc 31.4 g/dL (30.0-36.0); Mean Corpuscular Hemoglobin 28.4 pg (28.0-34.0); Mean Corpuscular Volume 90.3 fl (81-99); Mean Platelet Volume 10.4 fL (7.4-10.4); Monocytes # 0.7 10^3/uL (0.2-0.9); Monocytes % 8.3 %; Neutrophils # 3.95 10^3/uL (1.8-7.7); Neutrophils % 49.2 %; Nucleated Red Blood Cells % 0 %; Platelet Count 293 10^3/cmm (130-400); Red Blood Count 4.44 10^6/uL (4.1-5.3); Red Cell Distribution Width 12.3 % (12.1-15.1)
[2022-04-12] MEDS: ondansetron 2 mg/ML SDV 2 mL 4 MG IVP ×2 (06:44→21:42)
--- NOTE | 2022-04-12 10:55 | PC.CHAP ---
Pastoral Care Encounter/Spiritual Assessment Type of Contact [] Declined product management manager visit [] Patient/Family/Request visit [] Outpatient visit [] Follow-up visit [] Physician referral [] Code/Alert [x] Routine visit [] Staff referral [] Actively dying [] Patient sleeping [] Family support [] [] Out of room [] Palliative care [] [] Receiving care in room [] Pre-surgical visit [] Trauma [] Long length of stay [] ICU visit [] Other: Relational/Emotional Strength [x] Patient feels connected with others/family/visitors/staff [] Distress [] Loneliness/isolation [] Abandonment Spirituality of Patient [x] Person of [place] [x] Attends Oriental Orthodox of their [place] [x] Believes in Prayer [x] Reads Bible or Druze materials [] There are Spiritual issues to be addressed Theatre Instructor Interventions [x] Prayer [x] Active listening [x] Non-anxious presence []x Spiritual/emotional support [] Crisis/trauma care [] Spiritual counseling [] Bereavement support [] Provided bereavement packet [] Provided Bible/devotional materials [] Provided toy/stuffed animal, coloring book to patient or family member [] Provided Communion [] Anointing/[place] [] Salvation [x] Completed spiritual assessment [] Other: Impact on Illness or Injury [] Angry [] Fearful [] Anxious [] Often cries [] Exhaustion [] Unable to work [] Unable to attend sabianist [] Unable to walk/stand [] Unable to read [] Unable to drive [] Unable to eat/drink [] Unable to sleep [] Unable to be with family [] Patient intubated [] Other: Summary Time spent with patient 15 min
[2022-04-12] MEDS: sodium chlor 0.9% + KCl 20 mEq 20 MEQ/1,000 ML BAG 100 MEQ IV ×2 (13:30→23:27)
[2022-04-12] MEDS: piperacillin-tazobactam 3.375 GM in sodium chloride 0.9% (plus) 50 ML IV ×2 (13:30→21:31)
--- NOTE | 2022-04-12 14:14 | PM.PN ---
Subjective Subjective: Patient was seen this morning, at bedside, patient is really worried about her diverticulitis, she is tried multiple diet regimens at home without any benefit, she is worried that she has had another episode of diverticulitis with all her diet interventions, she does tell me that she started to take a high-fiber diet she might of started too soon, she does report diarrhea, this morning she did have 1 episode of bloody stools, but the Hemoccult was negative, no nausea, no vomiting, patient was reexamined, she is ambulating the hallways with her Vitals/I&O/Wt Last Vital Signs Temp 98.2 F 04/12/22 11:28 Pulse 80 04/12/22 11:28 Resp 80 H 04/12/22 11:28 BP 126/82 04/12/22 11:28 Pulse Ox 97 04/12/22 11:28 04/11/22 04/12/22 04/12/22 22:59 06:59 14:59 Intake Total 1000 / 1000 300 / 1300 480 / 480 Balance 1000 / 1000 300 / 1300 480 / 480 Weight last 48 hrs Weight 90.889 kg Weight 92.079 kg Physical Exam Const: COMMON NORMALS: no acute distress and patient oriented x3 Resp: COMMON NORMALS: normal respiratory effort, No retractions, No use of accessory muscles and clear to auscultation bilaterally AUSCULTATION: clear to auscultation bilaterally Cardio: COMMON NORMALS: regular rate, regular rhythm, S1 normal heart sound present and S2 normal heart sound present RATE: regular rate RHYTHM: regular rhythm HEART SOUNDS: S1 normal heart sound present and S2 normal heart sound present GI: OTHER: Abdomen soft, distended, decreased bowel sounds, no guarding, no rebound, no rigidity, generalized tenderness Extremity: COMMON NORMALS: no pedal edema Neuro: COMMON NORMALS: patient oriented x3 Psych: COMMON NORMALS: mental status grossly normal Data : 04/12/22 04:20 04/11/22 19:15 Micro: Microbiology 04/12/22 09:48 Occult Blood (FIT) - Final Stool 04/12/22 05:45 Enteric Pathogens (PCR) - Final Stool Routine Collection Parasite Antigen Panel - Final C.difficile Toxin B Gene (PCR) - Final 04/12/22 05:45 Stool Lactoferrin - Final Stool - Stool Aspirate A&P Assessment and plan (1) Colitis: Status: Acute (2) Perforation of sigmoid colon due to diverticulitis: Status: Acute (3) Diverticulitis: Status: Acute (4) Abnormal CT of the abdomen: Status: Acute Plan Perforated diverticulitis -During her last hospitalization as there was concerns for perforated diverticulitis, she had small abscesses above the bladder, discussion with interventional radiology, it was felt that it was too difficult to access, risks associated with minimal benefit, she was monitored with IV antibiotics, and clinically improved -Today her CT scan shows Stomach and bowel: Mild diverticulosis of the distal descending and sigmoid colon. Mildly progressive long segment colonic wall thickening and pericolonic edema in the proximal sigmoid. Small volume adjacent free fluid is stable. There is a multilocular un encapsulate fluid collection anterior to the sigmoid colon superior to the bladder. The morphology of the lesion has changed since 03/30/2022. The largest locule is decreased in size. There are 2 additional locules now visible. There is no peripheral enhancement. The stomach is decompressed, preventing meaningful evaluation of wall thickness. The small bowel is nondilated. Appendix: The appendix is normal. Intraperitoneal space: There is no free air or significant intraperitoneal free fluid. -No significant leukocytosis, no fevers, no significant inflammatory marker elevation -The question is is that are these true diverticular abscesses versus free fluid -I went over her scans with radiology, pockets of fluid are just above the bladder, smaller than previous, difficult to access, look more free fluid than actual abscess -Discussed with general surgery, they will look over his scans -For now continue conservative interventions, -N.p.o., IV fluids, Zofran Constipation Asthma Diverticulosis Chronic dry eye Hepatic steatosis IBS Seasonal allergies GERD Hypertension Obesity. The patient becomes regarding lifestyle medication Eczema Pseudotumor cerebri DVT Proflex is. Bilateral SCD Attestations Medical Necessity Statement*: Patient requires hospitalization inpatient, greater than 2 midnights, for perforated diverticulitis Coding Level of Care Code Acute Manager Ecommerce for g Fwd Diagnoses Colitis K52.9 Perforation of sigmoid colon due to diverticulitis K57.[address] of the abdomen R93.5
[2022-04-13 04:00] VITALS: BP 150/83; PULSE 62; RESP 18; TEMP 36.6; O2SAT 93
[2022-04-13] MEDS: piperacillin-tazobactam 3.375 GM in sodium chloride 0.9% (plus) 50 ML IV (04:58)
[2022-04-13 05:50] LABS: Basophils % 0.8 %; Eosinophils # 0.1 10^3/uL (0.0-0.8); Eosinophils % 2.3 %; Hematocrit 40.1 % (37.0-47.0); Hemoglobin 12.8 g/dL (11.5-15.3); Lymphocytes # 2.6 10^3/uL (0.8-4.8); Lymphocytes % 49.2 %; Mean Corpuscular HGB Conc 31.9 g/dL (30.0-36.0); Mean Corpuscular Hemoglobin 28.6 pg (28.0-34.0); Mean Corpuscular Volume 89.7 fl (81-99); Mean Platelet Volume 10.5 fL (7.4-10.4); Monocytes # 0.4 10^3/uL (0.2-0.9); Monocytes % 7.9 %; Neutrophils # 2.12 10^3/uL (1.8-7.7); Neutrophils % 39.6 %; Nucleated Red Blood Cells % 0 %; Platelet Count 296 10^3/cmm (130-400); Red Blood Count 4.47 10^6/uL (4.1-5.3); Red Cell Distribution Width 12.3 % (12.1-15.1); White Blood Count 5.3 10^3/uL (4.0-10.0)
[2022-04-13 06:25] LABS: Alanine Aminotransferase 12 U/L (0-33); Albumin Level 3.7 g/dL (3.5-5.2); Alkaline Phosphatase 96 IU/L (35-105); Aspartate Amino Transferase 13 U/L (0-32); Blood Urea Nitrogen 4 mg/dL (8-23); C Reactive Protein 6.1 mg/L (0.0-4.9); Calcium 8.9 mg/dL (8.5-10.5); Carbon Dioxide 22 mmol/L (22-29); Chloride 109 mmol/L (98-107); Globulin 2.7 g/dL (1.3-4.6); Glomerular Filtration Rate 162.8 mL/min (90-130); Glucose 89 mg/dL (65-115); Magnesium 2.1 mg/dL (1.7-2.3); Osmolality Calculated 288 mOsm/kg (285-295); Sodium 141 mmol/L (136-145); Total Bilirubin 0.5 mg/dL (0.15-1.2); Total Protein 6.4 g/dL (6.6-8.7)
[2022-04-13] MEDS: acetaminophen 325 mg Tablet 650 MG PO (07:52)
[2022-04-13] MEDS: ondansetron 2 mg/ML SDV 2 mL 4 MG IVP (07:53)
[2022-04-13 08:00] VITALS: BP 135/82; PULSE 65; RESP 14; TEMP 36.4; O2SAT 96
--- NOTE | 2022-04-13 10:22 | P.DS_ITS ---
Discharge Providers Date of Admission: 04/11/22 22:09 Date of Discharge: April 13, 2022 Attending Provider at Admission: Jared Tapia DO Attending Provider at Discharge: Donovan Tyler MD Primary Care Provider: Leighann Silva MD Diagnoses at Discharge Discharge Diagnosis (1) Colitis: Status: Acute (2) Perforation of sigmoid colon due to diverticulitis: Status: Acute (3) Diverticulitis: Status: Acute (4) Abnormal CT of the abdomen: Status: Acute Reason for Visit Reason for Visit: N/V/D Abd Pains Hospital Course Hospital Course This is a 61-year-old female with a past medical history of diverticulosis, recent hospitalization with diverticulitis with concerns for microperforation who presents to [facility] for abdominal pain Patient was admitted to [facility] for diverticulitis with microperforation -During her last hospitalization as there was concerns for micro perforated diverticulitis, she had small abscesses above the bladder, discussion with interventional radiology, it was felt that it was too difficult to access, risks associated with minimal benefit, she was monitored with IV antibiotics, and clinically improved -Today her CT scan shows Stomach and bowel: Mild diverticulosis of the distal descending and sigmoid colon. Mildly progressive long segment colonic wall thickening and pericolonic edema in the proximal sigmoid. Small volume adjacent free fluid is stable. There is a multilocular un encapsulate fluid collection anterior to the sigmoid colon superior to the bladder. The morphology of the lesion has changed since 03/30/2022. The largest locule is decreased in size. There are 2 additional locules now visible. There is no peripheral enhancement. The stomach is decompressed, preventing meaningful evaluation of wall thickness. The small bowel is nondilated. Appendix: The appendix is normal. Intraperitoneal space: There is no free air or significant intraperitoneal free fluid. -No significant leukocytosis, no fevers, no significant inflammatory marker elevation -The question is is that are these true diverticular abscesses versus free fluid -I went over her scans with radiology, pockets of fluid are just above the bladder, smaller than previous, difficult to access, look more free fluid than actual abscess -Thus I managed her conservatively, bowel rest, broad-spectrum antibiotic, fluid therapy and clinically monitored -She was ambulating without significant symptomatology, abdominal pain improved, abdominal distention improved, no signal leukocytosis, no significant inflammatory marker elevation, no fevers Transition to clear liquid diet, tolerated well -Thus I feel that the small microperforations could be abscesses, however at this point I do not think she would clinically benefit from drainage or abdominal washout as she significantly clinically improved, had a benign abdominal exam, remains afebrile, no significant leukocytosis, no significant inflammatory abnormalities -On discharge there is quite concerned by her and her about recurrence of her symptoms -I spent over 1 hour going over diverticulitis, starting off with clears advancing to full's, advancing to low fiber diet and eventually to a high-fiber diet -She can use Zofran as needed for nausea, continue Augmentin for 12 remaining days, milk of mag if she feels constipated -In addition I have left diet instructions as below - For your diverticulitis -As we discussed -Initially do clear liquids for 24 hours, if tolerated well -Switch to full liquid diet -I would try to do full liquids for at least a week, if you can try to extend it for 2 weeks if possible -I would ensure that you are getting appropriate electrolytes and nutrition by substituting Ensure or protein shakes with low fiber in it -Be careful as certain items can have high fiber such as almond milk, kale, read the nutrition labels -Fruits that are not cooked can also be high in fiber -Oatmeal it also is high in fiber to -After at least 2 week start off with a low fiber diet, and slowly advance diet from there -At about 3 to 4 weeks now you can institute a high-fiber diet -I will have patient follow with Dr. Bruner as outpatient for consideration of colectomy Physical Exam Const: COMMON NORMALS: no acute distress and patient oriented x3 Resp: COMMON NORMALS: normal respiratory effort, No retractions, No use of accessory muscles and clear to auscultation bilaterally AUSCULTATION: clear to auscultation bilaterally Cardio: COMMON NORMALS: regular rate, regular rhythm, S1 normal heart sound present and S2 normal heart sound present RATE: regular rate RHYTHM: regular rhythm HEART SOUNDS: S1 normal heart sound present and S2 normal heart sound present GI: COMMON NORMALS: Normal to inspection, nondistended, normoactive bowel sounds present, Soft to palpation and non-tender PALPATION: Yes Soft to palpation Extremity: COMMON NORMALS: no pedal edema Neuro: COMMON NORMALS: patient oriented x3 Psych: COMMON NORMALS: mental status grossly normal Discharge Data Studies Completed and Pending Completed Studies During Hospitalization Category Date Time Status CT abdomen pelvis w con* [id number] Urgent Cat Scan 04/11/22 19:53 Completed Pending at discharge Category Date Time Status C Reactive Protein AM LABS Lab 04/14/22 04:00 Ordered C Reactive Protein AM LABS Lab 04/15/22 04:00 Ordered Complete Blood Count w/Auto AM LABS Lab 04/14/22 04:00 Ordered Complete Blood Count w/Auto AM LABS Lab 04/15/22 04:00 Ordered Comprehensive Metabolic Panel AM LABS Lab 04/14/22 04:00 Ordered Comprehensive Metabolic Panel AM LABS Lab 04/15/22 04:00 Ordered Magnesium AM LABS Lab 04/14/22 04:00 Ordered Magnesium AM LABS Lab 04/15/22 04:00 Ordered Radiology Impressions Abdomen/Pelvis CT 04/11/22 19:53 IMPRESSION: 1. Progressive inflammation of the sigmoid colon since 03/30/2022. 2. Stable small volume mildly loculated pelvic free fluid. 3. Multilocular unencapsulated fluid collection superior to the bladder is similar in overall size but changed morphologically since 03/30/2022. This could represent loculated ascites. Continued follow-up would be required to unequivocally exclude abscess. COMMENTS: Consistent with the [employer] [place] [employer]'s Incidental Findings Committee white paper (J Am Marlen Radiol 2018): Any incidental renal lesion less than 1 cm or classified as too small to characterize, or any incidental cystic renal lesion characterized as simple-appearing, is likely benign. No follow-up imaging is recommended for these lesions per consensus recommendations based on imaging criteria. Laboratory Results WBC 5.3 10^3/uL (4.0-10.0) 04/13/22 05:25 RBC 4.47 10^6/uL (4.1-5.3) 04/13/22 05:25 Hgb 12.8 g/dL (11.5-15.3) 04/13/22 05:25 Hct 40.1 % (37.0-47.0) 04/13/22 05:25 MCV 89.7 fl (81-99) 04/13/22 05:25 MCH 28.6 pg (28.0-34.0) 04/13/22 05:25 MCHC 31.9 g/dL (30.0-36.0) 04/13/22 05:25 RDW 12.3 % (12.1-15.1) 04/13/22 05:25 Plt Count 296 10^3/cmm (130-400) 04/13/22 05:25 MPV 10.5 fL (7.4-10.4) H 04/13/22 05:25 Neut % (Auto) 39.6 % 04/13/22 05:25 Lymph % (Auto) 49.2 % 04/13/22 05:25 [place] % (Auto) 7.9 % 04/13/22 05:25 Eos % (Auto) 2.3 % 04/13/22 05:25 Baso % (Auto) 0.8 % 04/13/22 05:25 Neut # (Auto) 2.12 10^3/uL (1.8-7.7) 04/13/22 05:25 Lymph # (Auto) 2.6 10^3/uL (0.8-4.8) 04/13/22 05:25 [place] # (Auto) 0.4 10^3/uL (0.2-0.9) 04/13/22 05:25 Eos # (Auto) 0.1 10^3/uL (0.0-0.8) 04/13/22 05:25 Baso # (Auto) 0.0 10^3/uL (0.0-0.1) 04/13/22 05:25 Nucleated RBC % (auto) 0 % 04/13/22 05:25 Nucleated RBCs # 0.0 /100WBC 04/13/22 05:25 Sodium 141 mmol/L (136-145) 04/13/22 05:25 Potassium 4.0 mmol/L (3.5-5.1) 04/13/22 05:25 Chloride 109 mmol/L (98-107) H 04/13/22 05:25 Carbon Dioxide 22 mmol/L (22-29) 04/13/22 05:25 Anion Gap 14.0 (5-19) 04/13/22 05:25 BUN 4 mg/dL (8-23) L 04/13/22 05:25 Creatinine 0.4 mg/dL (0.5-0.9) L 04/13/22 05:25 GFR Calculation 162.8 mL/min (90-130) H 04/13/22 05:25 Glucose 89 mg/dL (65-115) 04/13/22 05:25 Calculated Osmolality 288 mOsm/kg (285-295) 04/13/22 05:25 Lactate 0.9 mmol/L (0.5-2.2) 04/11/22 19:25 Calcium 8.9 mg/dL (8.5-10.5) 04/13/22 05:25 Magnesium 2.1 mg/dL (1.7-2.3) 04/13/22 05:25 Total Bilirubin 0.5 mg/dL (0.15-1.2) 04/13/22 05:25 AST 13 U/L (0-32) 04/13/22 05:25 ALT 12 U/L (0-33) 04/13/22 05:25 Alkaline Phosphatase 96 IU/L (35-105) 04/13/22 05:25 C-Reactive Protein 6.1 mg/L (0.0-4.9) H 04/13/22 05:25 Total Protein 6.4 g/dL (6.6-8.7) L 04/13/22 05:25 Albumin 3.7 g/dL (3.5-5.2) 04/13/22 05:25 Globulin 2.7 g/dL (1.3-4.6) 04/13/22 05:25 Lipase 18 U/L (13-60) 04/11/22 19:15 Urine Color Yellow (Yellow) 04/11/22 20:04 Urine Appearance Clear (CLEAR) 04/11/22 20:04 Urine pH 8 (5-7) H 04/11/22 20:04 Ur Specific [place] 1.010 (1.005-1.030) 04/11/22 20:04 Urine Protein Neg (Negative) 04/11/22 20:04 Urine Glucose (UA) Norm (Normal) 04/11/22 20:04 Urine Ketones 1+ (Negative) H 04/11/22 20:04 Urine Blood Neg (Negative) 04/11/22 20:04 Urine Nitrate Negative (Negative) 04/11/22 20:04 Urine Bilirubin Neg (Negative) 04/11/22 20:04 Prot Sulfosalicylic Acd Negative (Negative) 04/11/22 20:04 Urine Urobilinogen Norm mg/dL (Negative) 04/11/22 20:04 Ur Leukocyte Esterase Negative (Negative) 04/11/22 20:04 Vitals Last Vital Signs Temp 97.6 F 04/13/22 08:00 Pulse 65 04/13/22 08:00 Resp 14 04/13/22 08:00 BP 135/82 04/13/22 08:00 Pulse Ox 96 04/13/22 08:00 Discharge Plan Discharge Patient Disposition: Home Condition: Stable Prescriptions: New magnesium hydroxide [Milk of Magnesia] 400 mg/5 mL suspension 5 ml PO BID PRN (Reason: constipation) Qty: 355 0RF ondansetron HCl 4 mg tablet 4 mg PO Q8H PRN (Reason: nausea and vomiting) 5 Days Qty: 15 0RF Continued albuterol sulfate [Proventil HFA] 90 mcg/actuation HFA aerosol inhaler 2 puff inhalation Q6H PRN (Reason: ASTHMA) Qty: 8.5 6RF montelukast 10 mg tablet 10 mg PO DAILY 90 Days Qty: 90 2RF coenzyme Q10 [Co Q-10] 100 mg capsule 100 mg PO DAILY 0RF Hold Instructions: see primary care before resuming milk thistle 175 mg tablet 175 mg PO BID 0RF Rx Instructions: give with meal/snack fluticasone propionate [Flonase Allergy Relief] 50 mcg/actuation spray,suspension 1 spray intranasal DAILY PRN (Reason: Allergic Symptoms) 0RF Rx Instructions: administer into each nostril coconut oil 1,000 mg capsule 2,000 mg PO DAILY 0RF Hold Instructions: see primary care before resuming AZO D-Mannose 500 mg capsule 1,000 mg PO DAILY 0RF Hold Instructions: see primary care before resuming Linzess 145 mcg capsule 145 mcg PO QAM Qty: 30 0RF glucosamine sulfate [Glucosamine] 500 mg Tablet 500 mg PO DAILY 0RF Hold Instructions: see primary care before resuming hydroxyzine HCl 25 mg tablet 25 mg PO BID 0RF PreserVision AREDS [id number] Capsule 1 cap PO BID 0RF Restasis 0.05 % Dropperette 1 drp OPHTHALMIC (EYE) Q12H 0RF guaifenesin [Mucinex] 600 mg Tablet Extended Release 12hr 600 mg PO BID 0RF omeprazole 20 mg Tablet,Delayed Release (Dr/Ec) 20 mg PO DAILY 0RF ondansetron HCl 4 mg tablet 4 mg PO Q6H PRN (Reason: Nausea) 0RF amoxicillin-pot clavulanate 875-125 mg tablet 1 tab PO BID 12 Days Qty: 24 0RF Discharge Orders: Discharge Order (Routine); Ordered 04/13/22 Ordered By: Donovan Tyler Referrals: Leighann Silva MD [Primary Care Provider] - Discharge Diet: As Directed Discharge Activity: Resume usual activity Patient Instructions: Diverticulitis (DC), High Fiber Diet (DC), Low Fiber Diet (DC), Clear Liquid Diet (DC), Diverticulitis Diet (DC), Full Liquid Diet (DC), Opioid Safety Activity Restrictions/Additional Instructions: - For your diverticulitis -As we discussed -Initially do clear liquids for 24 hours, if tolerated well -Switch to full liquid diet -I would try to do full liquids for at least a week, if you can try to extend it for 2 weeks if possible -I would ensure that you are getting appropriate electrolytes and nutrition by substituting Ensure or protein shakes with low fiber in it -Be careful as certain items can have high fiber such as almond milk, kale, read the nutrition labels -Fruits that are not cooked can also be high in fiber -Oatmeal it also is high in fiber to -After at least 2 week start off with a low fiber diet, and slowly advance diet from there -At about 3 to 4 weeks now you can institute a high-fiber diet Discharge Attestations Time Spent in Discharge Care*: less than 30 min Quality Metrics Clinical Quality Measures [ No reported AMI, CVA or VTE this stay] Coding Level of Care Code Acute Chg FW DC note Exam Detailed Diagnoses Colitis K52.9 Perforation of sigmoid colon due to diverticulitis K57.[address] of the abdomen R93.5
[2022-04-13 11:56] VITALS: BP 157/72; PULSE 76; RESP 13; O2SAT 93
== END 2022-04-13 14:44 | disposition home or self-care (01) ==
LOC: ER 22:08 → MEDSURG 22:52
PROVIDERS: Emergency Medicine; Admitting Provider Internal Medicine; Emergency Provider Emergency Medicine; PCP Family Medicine; Visit Provider Family Medicine
DX: K57.20 Diverticulitis of large intestine with perforation and abscess without bleeding (principal); K52.9 Noninfective gastroenteritis and colitis, unspecified; R93.5 Abnormal findings on diagnostic imaging of other abdominal regions, including retroperitoneum; J45.909 Unspecified asthma, uncomplicated; K21.9 Gastro-esophageal reflux disease without esophagitis; I10 Essential (primary) hypertension; E66.9 Obesity, unspecified; Z68.36 Body mass index [BMI] 36.0-36.9, adult
CPT/HCPCS: 36415; 74177; 80053; 81003; 82274; 83605; 83630; 83690; 83735; 85025; 86140; 87493; 87506; 96365; 96366; 96367; 96375; 96376; 99285; G0378; J0744; J2405; J2543; J3490; J7030; Q9967

== ENCOUNTER → 2022-04-27 14:26 | Outpatient (BNVA) | payer BC, SELFPAY | PROVIDERS: PCP Family Medicine; Visit Provider Surgery | DX: K57.92 Diverticulitis of intestine, part unspecified, without perforation or abscess without bleeding (principal); R10.9 Unspecified abdominal pain | CPT/HCPCS: 80053; 85025 ==

== ENCOUNTER → 2022-05-25 15:44 | Outpatient (BNVA) | payer BC, SELFPAY | PROVIDERS: PCP Family Medicine; Visit Provider Nurse Practitioner | DX: K57.90 Diverticulosis of intestine, part unspecified, without perforation or abscess without bleeding (principal) | CPT/HCPCS: 85025 ==

== ENCOUNTER → 2022-06-02 17:13 | Outpatient (BNVA) | payer BC, SELFPAY | PROVIDERS: PCP Family Medicine; Visit Provider Family Medicine | DX: K58.9 Irritable bowel syndrome, unspecified (principal) | CPT/HCPCS: 85025 ==